=== PATIENT | female | born 1975 | race Caucasian/White ===

== ENCOUNTER 2021-01-13 21:15 | Emergency (ER) | payer MEDICAID, SELFPAY ==
--- NOTE | ~2021-01-13 | CT_ITS ---
EXAMINATION: CT ABDOMEN AND PELVIS WITH CONTRAST CLINICAL INFORMATION: Epigastric pain. History of adhesions. Right upper quadrant pain. COMPARISON: CT scan abdomen pelvis 05/20/2019 TECHNIQUE: Multidetector volumetric images were obtained from the superior aspect of the liver through the pubic symphysis following administration 85 mL of Omnipaque 350 intravenous contrast. Sagittal and coronal reformatted images were obtained on the technologist's workstation. Oral contrast: No This CT examination was performed using dose optimization techniques as appropriate, variously including the following: *Automated exposure control *Adjustment of mA and/or kV according to patient size (this includes techniques or standardized protocols for targeted exams where dose is matched to indication/reason for exam; i.e. extremities or head) *Use of iterative reconstruction technique DLP: 756 mGy-cm FINDINGS: LUNG BASES: The visualized lung bases are unremarkable. LIVER, GALLBLADDER, AND BILIARY TREE: The liver is normal in size, shape, and attenuation. No focal hepatic lesion or biliary ductal dilatation is present. The gallbladder is unremarkable with no evidence of radiopaque gallstones, gallbladder wall thickening, or obvious pericholecystic inflammatory changes. PANCREAS: Unremarkable. SPLEEN: Unremarkable. ADRENAL GLANDS: Unremarkable. KIDNEYS AND URETERS: The kidneys are normal in size, shape, and attenuation. No hydronephrosis, hydroureter, or calculi seen. No perinephric stranding. BLADDER: Unremarkable. GASTROINTESTINAL TRACT: No acute abnormality. There is no bowel wall thickening /edema. There is no bowel obstruction. There is a moderate volume of stool in the colon. The appendix is nonvisualized . The small bowel loops are unremarkable. The stomach is normal. There is no hiatal hernia. ABDOMINAL WALL: No significant hernia is appreciated. LYMPH NODES: Normal. VASCULAR: Small volume of calcifications of distal abdominal aorta and common iliac arteries. There is no aneurysm. PELVIC VISCERA: Status post hysterectomy. No pelvic abnormality. OSSEOUS STRUCTURES: Unremarkable. CT/CT abdomen pelvis w con IMPRESSION: No acute abnormality CT scan abdomen and pelvis.
--- NOTE | ~2021-01-13 | US_ITS ---
EXAMINATION: ABDOMINAL ULTRASOUND LIMITED CLINICAL INFORMATION: Right upper quadrant pain. COMPARISON: Abdominal pelvic CT from 01/13/2021. TECHNIQUE: Real-time imaging of the right upper quadrant abdominal viscera. FINDINGS: PANCREAS: The visualized pancreatic head and body are normal in appearance. The remainder of the pancreas is obscured from visualization by the overlying bowel gas. LIVER: The liver is of normal size and echogenicity without focal lesions nor intrahepatic biliary ductal dilation. GALLBLADDER: Normal. The gallbladder is physiologically distended without evidence of stones, sludge, polyps, wall thickening or pericholecystic fluid. COMMON BILE DUCT: Normal in caliber measuring 0.2 cm in diameter. FREE FLUID: None. US/US abdomen limited IMPRESSION: Unremarkable limited right upper quadrant ultrasound.
[2021-01-13 21:58] VITALS: BP 125/85; PULSE 111; RESP 18; TEMP 36.6; O2SAT 100; BMI 31.6
[2021-01-13 22:11] LABS: MANUAL DIFF FLAG NO
[2021-01-13 22:16] LABS: Basophils Percent Auto 0.3 % (0-2); Eosinophils Absolute Auto 0.1 X10*3/uL (0.0-0.4); Eosinophils Percent Auto 0.4 % (0-4); Hematocrit 44.2 % (37-47); Hemoglobin 14.9 g/dl (12.0-16.0); Imm Gran Abs Auto 0.02 X10*3/uL (0.00-0.03); Imm Gran Pct Auto 0.2 % (0.0-0.4); Lymphocytes Absolute Auto 1.5 X10*3/uL (1.2-4.9); Lymphocytes Percent Auto 12.9 % (20-40); Mean Corpuscular HGB Conc 33.7 g/dl (31.0-35.0); Mean Corpuscular Hemoglobin 31.1 pg (27.0-33.0); Mean Corpuscular Volume 92.3 fL (80-98); Mean Platelet Volume 10.6 fL (9.4-12.3); Monocytes Absolute Auto 0.6 X10*3/uL (0.1-1.2); Monocytes Percent Auto 4.7 % (2-11); Neutrophils Absolute Auto 9.7 X10*3/uL (2.0-8.3); Neutrophils Percent Auto 81.5 % (45-73); Platelet Count 320 X10*3/uL (160-400); Red Blood Count 4.79 X10*6/uL (4.20-5.50); Red Cell Distribution Width 13.2 % (11.0-16.0); White Blood Count 11.9 X10*3/uL (4.8-10.8)
[2021-01-13 22:37] LABS: Alanine Aminotransferase 21 U/L (0-31); Albumin Level 4.7 g/dL (3.5-5.0); Alkaline Phosphatase 86 U/L (39-117); Anion Gap 19 (12-20); Aspartate Amino Transferase 17 U/L (5-31); Bilirubin Total 0.9 mg/dL (0.0-1.0); Blood Urea Nitrogen 15 mg/dL (9-16); Calcium 10.1 mg/dL (8.4-10.2); Carbon Dioxide 25 mmol/L (22-29); Chloride 101 mmol/L (96-108); Creatinine Clr Calc Pharmacy 60.4; Estimated Glomerular Filt Rate 46; Glucose Random 120 mg/dL (60-115); Potassium 3.5 mmol/L (3.3-5.1); Sodium 141 mmol/L (135-145); Total Protein 7.8 g/dL (6.5-8.0)
[2021-01-13] MEDS: ondansetron HCL 4 MG/2 ML VIAL IVPUSH (23:25)
[2021-01-13 23:29] VITALS: RESP 18
[2021-01-13] MEDS: Morphine Sulfate 4 MG/ML CARTRIDGE IVPUSH (23:29)
--- NOTE | 2021-01-13 23:29 | ED.ABDPAIN ---
HPI - Abdominal Pain General Chief Complaint: Abdominal Pain Stated Complaint: nausea vomiting Time Seen by Provider: 01/13/21 23:09 Source: patient Mode of arrival: ambulatory Limitations: no limitations History of Present Illness HPI narrative: Patient comes emergency room complaining of diffuse abdominal pain, much worse in the epigastric and right upper quadrant region. Patient states around 19:00 she was sitting dinner, ate meat, she had sudden onset of severe abdominal pain, nausea, vomiting and diarrhea. Patient states the pain is 10/10. Patient states this is the 1st time that it happens, denies any previous issues with gallbladder. 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 Related Data Previous Rx's Medication Instructions Recorded omeprazole 40 mg PO DAILY #14 cap 01/14/21 Allergies Allergy/AdvReac Type Severity Reaction Status Date / Time No Known Allergies Allergy Unverified 06/14/20 18:36 Review of Systems Review of Systems Constitutional : No Weight loss, No Fever, No Chills, No Night Sweats, No Fatigue, No Malaise ENT/Mouth : No Hearing loss, No Ear Pain, No Nasal Congestion, No Sinus Pain, No Hoarseness, No sore throat, No Rhinorrhea, No Swallowing Difficulty Eyes: No Eye Pain, No Swelling, No Redness, No Foreign Body, No Discharge, No Vision Changes Cardiovascular : No Chest Pain, No SOB, No Dyspnea on Exertion, No Orthopnea, No Edema, No Palpitations Respiratory : No Cough, No Sputum, No Wheezing, No Smoke Exposure, No Dyspnea Gastrointestinal : Complaining of nausea, vomiting, diarrhea, diffuse abdominal pain worse in epigastric and right upper quadrant area Genitourinary : no irregular bleeding, No Dysuria, No Urinary Frequency, No Hematuria, No Urinary Incontinence, No Urgency, No Flank Pain, No Urinary Flow Changes, No Hesitancy Musculoskeletal : No joint pain, No Myalgias, No Joint Swelling Skin : No Skin Lesions, No rash Neuro : No Weakness, No Numbness, No Paresthesias, No Loss of Consciousness, No Dizziness, No Headache Psych : No Anxiety/Panic, No Depression, No SI/HI/AH/VH, No Social Issues, Heme/Lymph: No Bruising, No Bleeding,No Lymphadenopathy Endocrine : No Polyuria, No Polydipsia, No Temperature Intolerance Physical Exam Vital Signs: Vital Signs: Last Vital Signs Temp 97.8 F 01/13/21 21:58 Pulse 85 01/13/21 23:33 Resp 12 01/14/21 00:57 BP 108/68 01/13/21 23:33 Pulse Ox 99 01/13/21 23:33 Body Mass Index 31.6 Appearance: Alert. Oriented X3. Mild distress due to pain, looks uncomfortable Eyes: Pupils equal, round and reactive to light. ENT: Pharynx normal. Neck: Normal inspection. Neck supple. No lymph nodes noted. No crepitus CVS: Normal heart rate and rhythm. Pulses normal. Normal S1 and S2 Respiratory: No respiratory distress. Breath sounds normal. No Wheezing. No rales Abdomen: Soft , tender to palpation diffusely but mostly in the epigastric area, positive Bowen sign, No distention. Skin: Skin warm and dry. Normal skin color. Normal skin turgor. Extremities: No lower extremity edema. No lower extremity edema. No Lacerations. No Rash Neuro: Oriented X 3. No motor deficit. No sensory deficit. Moving all extermities. No slurred speech. Course Course Course Narrative: Patient states that after GI cocktail, she feels much better. I discussed with the patient that given that her symptoms were very sudden, with vomiting and diarrhea, she likely has gastritis, less likely peptic ulcer disease MDM - Abdominal Pain Lab Data Result diagrams: 01/13/21 22:06 01/13/21 22:06 Labs: Lab Results 01/13/21 01/13/21 01/14/21 Range/Units 22:06 22:06 00:53 WBC 11.9 H (4.8-10.8) X10*3/uL RBC 4.79 (4.20-5.50) X10*6/uL Hgb 14.9 (12.0-16.0) g/dl Hct 44.2 (37-47) % MCV 92.3 (80-98) fL MCH 31.1 (27.0-33.0) pg MCHC 33.7 (31.0-35.0) g/dl RDW 13.2 (11.0-16.0) % Plt Count 320 (160-400) X10*3/uL MPV 10.6 (9.4-12.3) fL Immature Gran % (Auto) 0.2 (0.0-0.4) % Neut % (Auto) 81.5 H (45-73) % Lymph % (Auto) 12.9 L (20-40) % [place] % (Auto) 4.7 (2-11) % Eos % (Auto) 0.4 (0-4) % Baso % (Auto) 0.3 (0-2) % Lymph # (Auto) 1.5 (1.2-4.9) X10*3/uL [place] # (Auto) 0.6 (0.1-1.2) X10*3/uL Eos # (Auto) 0.1 (0.0-0.4) X10*3/uL Baso # (Auto) 0.0 (0.0-0.2) X10*3/uL Abs Immat Gran (auto) 0.02 (0.00-0.03) X10*3/uL Absolute Neuts (auto) 9.7 H (2.0-8.3) X10*3/uL Absolute Nucleated RBC 0.000 (0.0-0.012) X10*3/uL Nucleated RBC % (auto) 0.0 (0.0-0.2) /100WBC Sodium 141 (135-145) mmol/L Potassium 3.5 (3.3-5.1) mmol/L Chloride 101 (96-108) mmol/L Carbon Dioxide 25 (22-29) mmol/L Anion Gap 19 (12-20) BUN 15 (9-16) mg/dL Creatinine 1.26 (0.5-1.4) mg/dL Estim Creat Clear Calc 60.4 Estimated GFR 46 Random Glucose 120 H (60-115) mg/dL Calcium 10.1 (8.4-10.2) mg/dL Total Bilirubin 0.9 (0.0-1.0) mg/dL AST 17 (5-31) U/L ALT 21 (0-31) U/L Alkaline Phosphatase 86 (39-117) U/L Total Protein 7.8 (6.5-8.0) g/dL Albumin 4.7 (3.5-5.0) g/dL Urine Color YELLOW Urine Appearance CLEAR Urine pH 7.0 (5.0-8.0) Ur Specific [place] <= 1.005 (1.005-1.025) Urine Protein NEG (NEG-TRACE) MG/DL Urine Glucose (UA) NEG (NEG) MG/DL Urine Ketones NEG (NEG) MG/DL Urine Blood NEG (NEG) Urine Nitrite NEG (NEG) Ur Leukocyte Esterase NEG (NEG) Imaging Data CT scan - abdomen: Radiologist's impression: FINDINGS: LUNG BASES: The visualized lung bases are unremarkable. LIVER, GALLBLADDER, AND BILIARY TREE: The liver is normal in size, shape, and attenuation. No focal hepatic lesion or biliary ductal dilatation is present. The gallbladder is unremarkable with no evidence of radiopaque gallstones, gallbladder wall thickening, or obvious pericholecystic inflammatory changes. PANCREAS: Unremarkable. SPLEEN: Unremarkable. ADRENAL GLANDS: Unremarkable. KIDNEYS AND URETERS: The kidneys are normal in size, shape, and attenuation. No hydronephrosis, hydroureter, or calculi seen. No perinephric stranding. BLADDER: Unremarkable. GASTROINTESTINAL TRACT: No acute abnormality. There is no bowel wall thickening /edema. There is no bowel obstruction. There is a moderate volume of stool in the colon. The appendix is nonvisualized . The small bowel loops are unremarkable. The stomach is normal. There is no hiatal hernia. ABDOMINAL WALL: No significant hernia is appreciated. LYMPH NODES: Normal. VASCULAR: Small volume of calcifications of distal abdominal aorta and common iliac arteries. There is no aneurysm. PELVIC VISCERA: Status post hysterectomy. No pelvic abnormality. OSSEOUS STRUCTURES: Unremarkable. CT/CT abdomen pelvis w con IMPRESSION: No acute abnormality CT scan abdomen and pelvis. Gallbladder ultrasound: Radiologist's impression: FINDINGS: PANCREAS: The visualized pancreatic head and body are normal in appearance. The remainder of the pancreas is obscured from visualization by the overlying bowel gas. LIVER: The liver is of normal size and echogenicity without focal lesions nor intrahepatic biliary ductal dilation. GALLBLADDER: Normal. The gallbladder is physiologically distended without evidence of stones, sludge, polyps, wall thickening or pericholecystic fluid. COMMON BILE DUCT: Normal in caliber measuring 0.2 cm in diameter. FREE FLUID: None. US/US abdomen limited IMPRESSION: Unremarkable limited right upper quadrant ultrasound. Discharge Plan Discharge Clinical Impression: Gastritis Qualifiers: Gastritis type: unspecified gastritis Chronicity: acute Gastritis bleeding: without bleeding Qualified Code(s): K29.00 - Acute gastritis without bleeding Patient Disposition: Home, Self-Care Instructions: Gastritis (ED) Additional Instructions: Please follow-up with your primary care physician tomorrow. If you have any worsening or new symptoms, please return to the emergency room or call 911 Prescriptions: New omeprazole 40 mg capsule,delayed release(DR/EC) 40 mg PO DAILY Qty: 14 RF: 0 PMFSH Past Medical History Medical History delivery delivered HIV (human immunodeficiency virus infection) HLD (hyperlipidemia) Social History Social History Advance Directives: No Advance Directives Information Provided: No
[2021-01-13 23:33] VITALS: BP 108/68; PULSE 85; RESP 15; O2SAT 99
[2021-01-13] MEDS: iohexoL 350 MG/ML 100 ML INFUS..BTL 85 ML IV (23:59)
--- NOTE | 2021-01-14 00:29 | PC.NURSE ---
Pt ambulating to the bathroom to provide urine sample with a steady gait.
--- NOTE | 2021-01-14 00:53 | PC.NURSE ---
UA obtained and sent.
[2021-01-14 00:57] VITALS: RESP 12
[2021-01-14] MEDS: 0.9 % Sodium Chloride 1,000 ML 999 ML IVCONT (01:01)
[2021-01-14 01:02] LABS: Glucose Urine UA NEG (NEG); Leukocyte Esterase Urine NEG (NEG); Nitrite Urine NEG (NEG); Specific Gravity - Urine <= 1.005 (1.005-1.025); Urine Blood NEG (NEG); Urine Ketones NEG (NEG); Urine Protein NEG (NEG-TRACE)
[2021-01-14 01:03] LABS: Appearance Urine CLEAR; Color Urine YELLOW
[2021-01-14] MEDS: Lidocaine HCl Viscous 2 % 15 ML SOLUTION MUCOUS MEM (01:06)
[2021-01-14] MEDS: Magnesium Hydrox/Alum Hydrox 30 ML ORAL.SUSP PO (01:06)
== END 2021-01-14 02:30 | disposition home or self-care (01) ==
PROVIDERS: Emergency Provider Emergency Medicine; PCP Internal Medicine
DX: K29.00 Acute gastritis without bleeding (principal); R10.13 Epigastric pain; R10.2 Pelvic and perineal pain; Z79.899 Other long term (current) drug therapy
CPT/HCPCS: 36415; 74177; 76705; 80053; 81003; 85025; 96361; 96374; 99284; J2270; J2405; Q9967

== ENCOUNTER 2021-02-08 10:06 | Outpatient (REF) | payer MEDICAID, SELFPAY | END 2021-02-08 10:07 | disposition home or self-care (01) | LOC: HO.LAB 10:06 | PROVIDERS: Visit Provider Internal Medicine | DX: Z20.822 Contact with and (suspected) exposure to COVID-19 (principal) | CPT/HCPCS: C9803; U0003; U0005 ==

== ENCOUNTER 2023-03-18 15:42 | Emergency (ER) | payer OTHER, SELFPAY ==
--- NOTE | ~2023-03-18 | XR_ITS ---
EXAMINATION: XR CHEST CLINICAL INFORMATION: Fever COMPARISON: Previous chest x-ray December 2017 TECHNIQUE: Frontal view of the chest was obtained. FINDINGS: No significant abnormality is noted involving the heart, lungs, mediastinum, bony thorax or soft tissues. XR/XR chest 1V IMPRESSION: Unremarkable examination.
--- NOTE | 2023-03-18 16:00 | ED_ITS ---
HPI - General Adult General Chief complaint: General Medical Stated complaint: sore throat, fever, abd pain Time Seen by Provider: 03/18/23 18:20 Source: patient and specimen boss Mode of arrival: ambulatory Limitations: no limitations History of Present Illness HPI narrative: 47-year-old female speaking only presented with headache, sore throat, body ache, epigastric pain started since this morning, patient declining any sick contacts, no recent travel. No chest pain, no SOB, no coughing , no lower extremity swelling or tenderness. Epigastric pain the patient has been evaluated in the emergency department for, patient is scheduled to follow-up with civil division deputy sheriff for further evaluation. Related Data Previous Rx's Medication Instructions Recorded omeprazole 40 mg capsule,delayed 40 mg PO DAILY #14 caps 01/14/21 release amoxicillin 875 mg-potassium 1 tab PO BID #20 tabs 03/18/23 clavulanate 125 mg tablet Allergies Allergy/AdvReac Type Severity Reaction Status Date / Time No Known Allergies Allergy Unverified 06/14/20 18:36 Review of Systems Review of Systems: All other systems are reviewed and are negative Constitutional: Reports as per HPI and Reports no additional constitutional complaints Eyes: Reports as per HPI and Reports no additional eye complaints Reports system reviewed and no additional complaints, except as documented Cardiovascular: Reports as per HPI and Reports no additional cardiovascular complaints Respiratory: Reports as per HPI and Reports no additional respiratory complaints Gastrointestinal: Reports as per HPI and Reports no additional gastrointestinal complaints Genitourinary: Reports no additional female genitourinary complaints Musculoskeletal: Reports no additional musculoskeletal complaints Skin/Breast: Reports system reviewed and no additional complaints, except as docu Psychiatric: Reports no additional psychiatric complaints Endocrine: Reports no additional endocrine complaints Hematologic/Lymphatic: Reports no additional hematologic/lymphatic complaints Allergic/Immunologic: Reports no additional allergic/immunologic complaints Reports system reviewed and no additional complaints, except as documented and Reports Abnormal speech present [facility] Past Medical History Medical History delivery delivered HIV (human immunodeficiency virus infection) HLD (hyperlipidemia) Social History Social History Advance Directives: No Advance Directives Information Provided: Yes Physical Exam ED Vital Signs: Vital Signs - 24 hr 03/18/23 16:01 03/18/23 18:20 03/18/23 19:04 Temperature 100.8 F H 100 F 99.7 F Pulse Rate 91 81 85 Respiratory Rate 20 16 17 Blood Pressure 131/89 125/89 146/72 H Pulse Oximetry 100 98 99 Oxygen Delivery Method Room Air Room Air Room Air BMI result Body Mass Index 30.9 vital signs have been reviewed as appeared to be correct. Blood pressure normal. Heart rate normal. Respiration rate normal. Temperature normal. Oxygen saturation normal. Appearance: Alert. Oriented X3. No acute distress. Head: Normal external exam. Normocephalic. Atraumatic. No Rodriguez signs noted. No raccoon eyes noted Eyes: PERRLA. EOMI. Conjunctiva and sclera normal. Eyelids normal. ENT: TM's Normal. Uvula midline. Moist mucous membranes. No trismus noted. No drooling noted. No muffled voice noted. Left frontal sinus tenderness to percussion , pharyngeal erythema with no exudate. Neck: Normal inspection. Neck supple. FROM. No adenopathy. Thyroid Normal. No meningeal signs. No neck mass noted. CVS: Normal heart rate and rhythm. Heart sound normal. No murmurs noted. Pulses normal throughout. Respiratory: No respiratory distress. Painless inspiration. Breath sounds normal. No wheezes/rales/rhonchi noted. Chest nontender. No accessory muscle usage noted or decreased air movement noted. Abdomen: Soft and nontender. Bowel sounds normal in all 4 quadrants. No distention noted. No organomegaly noted. No visible injury noted. Back: No CVA tenderness. Full range of motion noted. Skin: Skin warm and dry. Normal skin color. Normal skin turgor. No rashes/lesions/lacerations noted. Extremities: No lower extremity edema. Extremities exhibit normal range of motion. Extremities nontender. Neuro: Oriented X 3. Cranial nerve exam: II-XII are grossly intact No motor deficit. No sensory deficit. Reflexes normal. Course Course Course Narrative: RME: 47yo F w/PMHx HIV, HLD, gastritis c/o MAURO, sore throat, chills, epigastric abdominal pain, subj fever x this AM. 100.8 oral in triage, mild posterior or pharyngeal erythema, uvula midline, abdomen soft/nontender EKG, labs, CXR, UA, COVID/flu and rapid strep ordered Full HPI, ROS and PE to be performed by primary ED provider. Reevaluation(s) Reevaluation #1: physical exam is consistent with left frontal sinusitis, patient has unremarkable labs otherwise, patient with history of epigastric pain has been evaluated in the emergency room in the past patient was instructed to follow up with civil division deputy sheriff. Medications Administered Discontinued Medications Generic Name Dose Route Start Last Admin Trade Name Freq PRN Reason Stop Dose Admin Ibuprofen 600 mg 03/18/23 18:42 03/18/23 19:34 Ibuprofen 600 Mg Tablet PO 03/18/23 18:43 600 mg ONCE ONE Administration Medical Decision Making Differential Diagnosis Differential Diagnoses: The differential diagnosis associated with the presentation includes ( ACS, gastritis, viral pharyngitis, bacterial pharyngitis, pneumonia, severe electrolyte abnormalities, severe anemia.) Admission/Observation Consideration of admission/observation: Escalation of care including adm ission/observation considered Lab Data MDM Lab Attestation statement: I reviewed the patient's lab results. 03/18/23 16:23 03/18/23 16:23 Labs: Lab Results 03/18/23 03/18/23 03/18/23 Range/Units 16:23 16:23 16:23 WBC 11.5 H (4.8-10.8) X10*3/uL RBC 4.19 L (4.20-5.50) X10*6/uL Hgb 13.0 (12.0-16.0) g/dl Hct 38.7 (37.0-47.0) % MCV 92.4 (80.0-98.0) fL MCH 31.0 (27.0-33.0) pg MCHC 33.6 (31.0-35.0) g/dl RDW 13.0 (11.0-16.0) % Plt Count 233 (160-400) X10*3/uL MPV 10.2 (9.4-12.3) fL Immature Gran % (Auto) 0.3 (0.0-0.4) % Neut % (Auto) 82.8 H (45-73) % Lymph % (Auto) 9.7 L (20-40) % [place] % (Auto) 6.5 (2-11) % Eos % (Auto) 0.4 (0-4) % Baso % (Auto) 0.3 (0-2) % Lymph # (Auto) 1.1 L (1.2-4.9) X10*3/uL [place] # (Auto) 0.8 (0.1-1.2) X10*3/uL Eos # (Auto) 0.1 (0.0-0.4) X10*3/uL Baso # (Auto) 0.0 (0.0-0.2) X10*3/uL Abs Immat Gran (auto) 0.03 (0.00-0.03) X10*3/uL Absolute Neuts (auto) 9.5 H (2.0-8.3) x10*3/uL Absolute Nucleated RBC 0.000 (0.0-0.012) X10*3/uL Nucleated RBC % (auto) 0.0 (0.0-0.2) /100WBC Sodium 138 (135-145) mmol/L Potassium 3.9 (3.3-5.1) mmol/L Chloride 105 (96-108) mmol/L Carbon Dioxide 25 (22-29) mmol/L Anion Gap 12 (12-20) BUN 15 (9-16) mg/dL Creatinine 1.03 (0.5-1.4) mg/dL Estim Creat Clear Calc 71.6 Estimated GFR 57 Random Glucose 84 (60-115) mg/dL Calcium 9.8 (8.4-10.2) mg/dL Total Bilirubin 0.9 (0.0-1.0) mg/dL Direct Bilirubin 0.3 (0.0-0.5) mg/dL AST 19 (5-31) U/L ALT 19 (0-31) U/L Alkaline Phosphatase 72 (39-117) U/L Troponin I High Sens < 2.7 (<3.5-17.0) ng/L Total Protein 7.1 (6.5-8.0) g/dL Albumin 4.2 (3.5-5.0) g/dL Lipase 14 (8-78) U/L Urine Color Urine Appearance Urine pH (5.0-9.0) Ur Specific [place] (1.005-1.025) Urine Protein (Neg-Trace) mg/dL Urine Glucose (UA) (Negative) mg/dL Urine Ketones (Negative) mg/dL Urine Blood (Negative) Urine Nitrite (Negative) Ur Leukocyte Esterase (Negative) Urine RBC (0-2) /HPF Urine WBC (0-5) /HPF Ur Squamous Epith Cells (0-2) /HPF Urine Bacteria (None Seen) Hyaline Casts (0-2) /LPF COVID-19 (ERIN) (Negative) COVID-19 Clin Com Influenza Type A (MALCOM) (Negative) Influenza Type B ([facility]ALCOM) (Negative) Influenza A & B Note S. pyogenes GrpA MALCOM (Negative) 03/18/23 03/18/23 03/18/23 Range/Units 16:23 16:23 18:30 WBC (4.8-10.8) X10*3/uL RBC (4.20-5.50) X10*6/uL Hgb (12.0-16.0) g/dl Hct (37.0-47.0) % MCV (80.0-98.0) fL MCH (27.0-33.0) pg MCHC (31.0-35.0) g/dl RDW (11.0-16.0) % Plt Count (160-400) X10*3/uL MPV (9.4-12.3) fL Immature Gran % (Auto) (0.0-0.4) % Neut % (Auto) (45-73) % Lymph % (Auto) (20-40) % [place] % (Auto) (2-11) % Eos % (Auto) (0-4) % Baso % (Auto) (0-2) % Lymph # (Auto) (1.2-4.9) X10*3/uL [place] # (Auto) (0.1-1.2) X10*3/uL Eos # (Auto) (0.0-0.4) X10*3/uL Baso # (Auto) (0.0-0.2) X10*3/uL Abs Immat Gran (auto) (0.00-0.03) X10*3/uL Absolute Neuts (auto) (2.0-8.3) x10*3/uL Absolute Nucleated RBC (0.0-0.012) X10*3/uL Nucleated RBC % (auto) (0.0-0.2) /100WBC Sodium (135-145) mmol/L Potassium (3.3-5.1) mmol/L Chloride (96-108) mmol/L Carbon Dioxide (22-29) mmol/L Anion Gap (12-20) BUN (9-16) mg/dL Creatinine (0.5-1.4) mg/dL Estim Creat Clear Calc Estimated GFR Random Glucose (60-115) mg/dL Calcium (8.4-10.2) mg/dL Total Bilirubin (0.0-1.0) mg/dL Direct Bilirubin (0.0-0.5) mg/dL AST (5-31) U/L ALT (0-31) U/L Alkaline Phosphatase (39-117) U/L Troponin I High Sens (<3.5-17.0) ng/L Total Protein (6.5-8.0) g/dL Albumin (3.5-5.0) g/dL Lipase (8-78) U/L Urine Color Urine Appearance Urine pH (5.0-9.0) Ur Specific [place] (1.005-1.025) Urine Protein (Neg-Trace) mg/dL Urine Glucose (UA) (Negative) mg/dL Urine Ketones (Negative) mg/dL Urine Blood (Negative) Urine Nitrite (Negative) Ur Leukocyte Esterase (Negative) Urine RBC (0-2) /HPF Urine WBC (0-5) /HPF Ur Squamous Epith Cells (0-2) /HPF Urine Bacteria (None Seen) Hyaline Casts (0-2) /LPF COVID-19 (ERIN) Negative (Negative) COVID-19 Clin Com See Note Influenza Type A (MALCOM) Negative (Negative) Influenza Type B ([facility]ALCOM) Negative (Negative) Influenza A & B Note See Note S. pyogenes GrpA MALCOM Negative (Negative) 03/18/23 Range/Units 19:03 WBC (4.8-10.8) X10*3/uL RBC (4.20-5.50) X10*6/uL Hgb (12.0-16.0) g/dl Hct (37.0-47.0) % MCV (80.0-98.0) fL MCH (27.0-33.0) pg MCHC (31.0-35.0) g/dl RDW (11.0-16.0) % Plt Count (160-400) X10*3/uL MPV (9.4-12.3) fL Immature Gran % (Auto) (0.0-0.4) % Neut % (Auto) (45-73) % Lymph % (Auto) (20-40) % [place] % (Auto) (2-11) % Eos % (Auto) (0-4) % Baso % (Auto) (0-2) % Lymph # (Auto) (1.2-4.9) X10*3/uL [place] # (Auto) (0.1-1.2) X10*3/uL Eos # (Auto) (0.0-0.4) X10*3/uL Baso # (Auto) (0.0-0.2) X10*3/uL Abs Immat Gran (auto) (0.00-0.03) X10*3/uL Absolute Neuts (auto) (2.0-8.3) x10*3/uL Absolute Nucleated RBC (0.0-0.012) X10*3/uL Nucleated RBC % (auto) (0.0-0.2) /100WBC Sodium (135-145) mmol/L Potassium (3.3-5.1) mmol/L Chloride (96-108) mmol/L Carbon Dioxide (22-29) mmol/L Anion Gap (12-20) BUN (9-16) mg/dL Creatinine (0.5-1.4) mg/dL Estim Creat Clear Calc Estimated GFR Random Glucose (60-115) mg/dL Calcium (8.4-10.2) mg/dL Total Bilirubin (0.0-1.0) mg/dL Direct Bilirubin (0.0-0.5) mg/dL AST (5-31) U/L ALT (0-31) U/L Alkaline Phosphatase (39-117) U/L Troponin I High Sens (<3.5-17.0) ng/L Total Protein (6.5-8.0) g/dL Albumin (3.5-5.0) g/dL Lipase (8-78) U/L Urine Color Yellow Urine Appearance Clear Urine pH 5.5 (5.0-9.0) Ur Specific [place] 1.020 (1.005-1.025) Urine Protein Negative (Neg-Trace) mg/dL Urine Glucose (UA) Negative (Negative) mg/dL Urine Ketones Trace (Negative) mg/dL Urine Blood Negative (Negative) Urine Nitrite Negative (Negative) Ur Leukocyte Esterase Small (1+) H (Negative) Urine RBC 0-2 (0-2) /HPF Urine WBC 0-5 (0-5) /HPF Ur Squamous Epith Cells 3-5 (0-2) /HPF Urine Bacteria None Seen (None Seen) Hyaline Casts 0-2 (0-2) /LPF COVID-19 (ERIN) (Negative) COVID-19 Clin Com Influenza Type A (MALCOM) (Negative) Influenza Type B (MALCMO) (Negative) Influenza A & B Note S. pyogenes GrpA MALCOM (Negative) Independent Interpretation I performed an independent interpretation of an: Plain X-Ray ( Chest: No acute intrathoracic pathology.) Radiology Impression Discussion of test interpretation with radiology: I have reviewed the radiologist's reading. Chronic Conditions Patient?s care impacted by: Other ( HIV.) Discharge Plan Discharge Clinical Impression: Acute frontal sinusitis Patient Disposition: Home, Self-Care Instructions: Sinusitis (ED) Prescriptions: New amoxicillin-pot clavulanate 875-125 mg tablet 1 tab PO BID Qty: 20 0RF No Action omeprazole 40 mg capsule,delayed release(DR/EC) 40 mg PO DAILY Qty: 14 0RF Referrals: Mohan Webster MD [Primary Care Provider] -
[2023-03-18 16:01] VITALS: BP 131/89; PULSE 91; RESP 20; TEMP 38.2; O2SAT 100; BMI 30.9
--- NOTE | 2023-03-18 16:03 | ECG_ITS ---
Test Reason : ABDPAIN Blood Pressure : / mmHG Vent. Rate : 083 BPM Atrial Rate : 083 BPM P-R Int : 146 ms QRS Dur : 078 ms QT Int : 374 ms P-R-T Axes : 033 003 024 degrees QTc Int : 439 ms Normal sinus rhythm Minimal voltage criteria for LVH, may be normal variant ( R in aVL ) Borderline ECG When compared with ECG of 25-JAN-2018 13:31, No significant change was found Referred By: Emma Steel Electronically Signed By:LYSSA BERRY
[2023-03-18 16:29] LABS: MANUAL DIFF FLAG NO
[2023-03-18 16:31] LABS: Basophils Percent Auto 0.3 % (0-2); Eosinophils Absolute Auto 0.1 X10*3/uL (0.0-0.4); Eosinophils Percent Auto 0.4 % (0-4); Hematocrit 38.7 % (37.0-47.0); Imm Gran Abs Auto 0.03 X10*3/uL (0.00-0.03); Imm Gran Pct Auto 0.3 % (0.0-0.4); Lymphocytes Absolute Auto 1.1 X10*3/uL (1.2-4.9); Lymphocytes Percent Auto 9.7 % (20-40); Mean Corpuscular HGB Conc 33.6 g/dl (31.0-35.0); Mean Corpuscular Volume 92.4 fL (80.0-98.0); Mean Platelet Volume 10.2 fL (9.4-12.3); Monocytes Absolute Auto 0.8 X10*3/uL (0.1-1.2); Monocytes Percent Auto 6.5 % (2-11); Neutrophils Absolute Auto 9.5 x10*3/uL (2.0-8.3); Neutrophils Percent Auto 82.8 % (45-73); Platelet Count 233 X10*3/uL (160-400); Red Blood Count 4.19 X10*6/uL (4.20-5.50); White Blood Count 11.5 X10*3/uL (4.8-10.8)
[2023-03-18 16:45] LABS: Alanine Aminotransferase 19 U/L (0-31); Albumin Level 4.2 g/dL (3.5-5.0); Alkaline Phosphatase 72 U/L (39-117); Anion Gap 12 (12-20); Aspartate Amino Transferase 19 U/L (5-31); Bilirubin Direct 0.3 mg/dL (0.0-0.5); Bilirubin Total 0.9 mg/dL (0.0-1.0); Blood Urea Nitrogen 15 mg/dL (9-16); Calcium 9.8 mg/dL (8.4-10.2); Carbon Dioxide 25 mmol/L (22-29); Chloride 105 mmol/L (96-108); Creatinine Clr Calc Pharmacy 71.6; Estimated Glomerular Filt Rate 57; Glucose Random 84 mg/dL (60-115); Lipase 14 U/L (8-78); Potassium 3.9 mmol/L (3.3-5.1); Sodium 138 mmol/L (135-145); Total Protein 7.1 g/dL (6.5-8.0)
[2023-03-18 16:53] LABS: Troponin-I High Sensitivity < 2.7 ng/L (<3.5-17.0)
[2023-03-18 16:55] LABS: COVID-19 Test Negative (Negative); IDNOW Serial# BCCEAD1C
[2023-03-18 17:12] LABS: IDNOW Serial# 9DB6401D; Influenza A Negative (Negative); Influenza B2 Negative (Negative)
[2023-03-18 18:20] VITALS: BP 125/89; PULSE 81; RESP 16; TEMP 37.7; O2SAT 98
[2023-03-18 18:55] LABS: IDNOW Serial# 08D9AD1C; Strep A Nucleic Acid Negative (Negative)
[2023-03-18 19:04] VITALS: BP 146/72; PULSE 85; RESP 17; TEMP 37.6; O2SAT 99
[2023-03-18 19:11] LABS: Appearance Urine Clear; Color Urine Yellow; Glucose Urine UA Negative (Negative); Leukocyte Esterase Urine Small (1+) (Negative); Nitrite Urine Negative (Negative); PH 5.5 (5.0-9.0); UMIC TRIGGER UACC YES; Urine Blood Negative (Negative); Urine Ketones Trace mg/dL (Negative); Urine Protein Negative (Neg-Trace)
--- NOTE | 2023-03-18 19:15 | MHC.EDTECH ---
ED ROUNDS ARE DONE VITALS ARE DONE
[2023-03-18] MEDS: Ibuprofen 600 MG TABLET PO (19:34)
--- NOTE | 2023-03-18 19:35 | PC.NURSE ---
pt medicated per MAR.
[2023-03-18 19:53] LABS: Bacteria Urine None Seen (None Seen); Hyaline Casts Urine 0-2 /LPF (0-2); RBC Urine 0-2 /HPF (0-2); UACC Culture Trigger YES; WBC Urine 0-5 /HPF (0-5)
[2023-03-18 20:25] VITALS: PULSE 89; RESP 16; TEMP 38; O2SAT 99
[2023-03-18] MEDS: oxyCODONE HCl Immed Release 5 MG TABLET PO (20:32)
[2023-03-18] MEDS: Amoxicillin/Potassium Clav 875 MG TABLET PO (20:32)
--- NOTE | 2023-03-18 20:39 | PC.NURSE ---
pt medicated w oxy and ABX prior to departure per orders. family member driving pt home. no piv. customer support specialist used this shift. aox4.
== END 2023-03-18 20:41 | disposition home or self-care (01) ==
PROVIDERS: Physician Assistant; Emergency Provider Emergency Medicine; PCP Internal Medicine
DX: J01.10 Acute frontal sinusitis, unspecified (principal); Z20.822 Contact with and (suspected) exposure to COVID-19; R50.9 Fever, unspecified; B20 Human immunodeficiency virus [HIV] disease; E78.5 Hyperlipidemia, unspecified; Z79.899 Other long term (current) drug therapy
CPT/HCPCS: 71045; 80048; 80076; 81001; 83690; 84484; 85025; 87086; 87502; 87635; 87651; 93005; 99283; 99284

== ENCOUNTER 2023-03-19 19:24 | Emergency (ER) | payer OTHER, SELFPAY ==
--- NOTE | 2023-03-19 | ECG_ITS ---
Test Reason : CP Blood Pressure : / mmHG Vent. Rate : 082 BPM Atrial Rate : 082 BPM P-R Int : 152 ms QRS Dur : 084 ms QT Int : 378 ms P-R-T Axes : 026 005 024 degrees QTc Int : 441 ms Normal sinus rhythm Minimal voltage criteria for LVH, may be normal variant ( R in aVL ) Borderline ECG When compared with ECG of 18-MAR-2023 16:13, No significant change was found Referred By: Generic ED Physician Electronically Signed By:YLSSA BERRY
[2023-03-19 19:29] VITALS: BP 118/72; PULSE 91; O2SAT 97
[2023-03-19 19:31] VITALS: BP 119/70; PULSE 92; RESP 26; TEMP 37.9; O2SAT 97
--- NOTE | 2023-03-19 19:51 | PC.NURSE ---
Pt ca&ox3, no signs of distress. Pt reports 10/10 throat, head and body pain. 20G IV placed in Rt AC. EKG done. Pt placed on bedside monitor.
--- NOTE | 2023-03-19 19:59 | ED.FEVER ---
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 states she takes no motrin or tylenol for her fevers. Cannot figure out why she still has a fevers. She denies risk for STI. 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 She overall is not feeling better. MD elicited complaint: fever Pertinent past history: HIV Onset (ago): day(s) (2) Context: sick contacts Exacerbating factors: swallowing Relieving factors: nothing Associated symptoms: chills, headache, rhinorrhea and sore throat Treatments prior to arrival fever: none Related Data Previous Rx's Medication Instructions Recorded omeprazole 40 mg capsule,delayed 40 mg PO DAILY #14 caps 01/14/21 release amoxicillin 875 mg-potassium 1 tab PO BID #20 tabs 03/18/23 clavulanate 125 mg tablet acetaminophen 325 mg tablet 650 mg PO Q6H PRN fever or pain 03/19/23 (Tylenol) #30 tabs ibuprofen 600 mg tablet 600 mg PO Q8H PRN fever or pain 03/19/23 #30 tabs Allergies Allergy/AdvReac Type Severity Reaction Status Date / Time No Known Allergies Allergy Unverified 06/14/20 18:36 Review of Systems Review of Systems: Constitutional : pos Fever, No Chills, No Fatigue ENT/Mouth : pos sore throat, pos Rhinorrhea Eyes: No Eye Pain, No Swelling, No Redness Cardiovascular : No Chest Pain, No SOB, No Dyspnea on Exertion Respiratory : No Cough, No Sputum Gastrointestinal : No Nausea, No Vomiting, No Diarrhea, No abdominal Pain Genitourinary : No Dysuria, No Urinary Frequency, No Hematuria, Musculoskeletal : No joint pain, No Myalgias, No Joint Swelling Skin : No Skin Lesions, No rash Neuro : No Weakness, No Numbness, No Dizziness, positive Headache Psych : No Anxiety/Panic, No Depression All other systems reviewed and are negative [facility] Past Medical History Attestation statement: The following information was validated with the patient. Medical History delivery delivered HIV (human immunodeficiency virus infection) HLD (hyperlipidemia) Social History Social History Alcohol intake: never Smoked in Last 30 Days: No Advance Directives: No Advance Directives Information Provided: No Patient : No Physical Exam Vital Signs: Vital Signs: Last Vital Signs Temp 100.2 F 03/19/23 19:31 Pulse 92 03/19/23 19:31 Resp 26 H 03/19/23 19:31 BP 119/70 03/19/23 19:31 Pulse Ox 97 03/19/23 19:31 O2 Del Method Room Air 03/19/23 19:31 BMI result Body Mass Index 30.0 Appearance: Alert. Oriented X3. No acute distress. Eyes: Pupils equal, round and reactive to light. ENT: Pharynx bilateral exudates noted, uvula midline no VENEREAL DISEASE CONTROL HEAD, normal voice handling secretions, no submandibular swelling or fullness Neck: Normal inspection. Neck supple. CVS: Normal heart rate and rhythm. Pulses normal. Respiratory: No respiratory distress. Breath sounds normal. Abdomen: Soft and nontender. Skin: Skin warm and dry. Normal skin color. Normal skin turgor. Extremities: No lower extremity edema. Neuro: Oriented X 3. No motor deficit. No sensory deficit. Course Course Course Narrative: feels better stable for DC Medications Administered Generic Name Dose Route Start Last Admin Trade Name Freq PRN Reason Stop Dose Admin Sodium Chloride 1,000 mls @ 999 mls/hr 03/19/23 20:15 03/19/23 20:06 Ns IV 03/19/23 21:15 999 mls/hr .Q1H1M GERALDO Administration Discontinued Medications Generic Name Dose Route Start Last Admin Trade Name Freq PRN Reason Stop Dose Admin Acetaminophen 650 mg 03/19/23 19:49 03/19/23 20:14 Acetaminophen 325 Mg Tablet PO 03/19/23 19:50 650 mg ONCE ONE Administration Ceftriaxone Sodium 1 gm/ 50 mls @ 100 mls/hr 03/19/23 19:59 03/19/23 20:14 Sodium Chloride IV 03/19/23 20:28 100 mls/hr ONCE ONE Administration Ketorolac Tromethamine 15 mg 03/19/23 19:59 03/19/23 20:14 Ketorolac Tromethamine 15 Mg/Ml Vial IVPUSH 03/19/23 20:00 15 mg ONCE ONE Administration Medical Decision Making Medical Decision Making [facility] Narrative: 47 yo female with hx of HIV, GERD here with fevers and sore throat - has only taken 2 doses of augmentin but not taking motrin or tylenol and upset she has a fever, she has no signs of VENEREAL DISEASE CONTROL HEAD or deeper space infection, normal voice tolerating secretions. She is not toxic appearing. we discussed tylenol and motrin for fevers she is aware. I offered STI testing she refuses, will repeat labs, check mono, one dose of rocephin and IVF tylenol and motrin anticipate DC home Differential Diagnosis Differential Diagnoses: The differential diagnosis associated with the presentation includes mono, strep throat, sinusitis, viral syndrome - adamantly denies STI concerns and declines swab Lab Data [facility] Lab Attestation statement: I reviewed the patient's lab results. 03/19/23 19:58 03/19/23 19:58 Labs: Lab Results 03/19/23 03/19/23 03/19/23 Range/Units 19:58 19:58 19:58 WBC 14.6 H (4.8-10.8) X10*3/uL RBC 4.07 L (4.20-5.50) X10*6/uL Hgb 12.6 (12.0-16.0) g/dl Hct 37.2 (37.0-47.0) % MCV 91.4 (80.0-98.0) fL MCH 31.0 (27.0-33.0) pg MCHC 33.9 (31.0-35.0) g/dl RDW 13.2 (11.0-16.0) % Plt Count 200 (160-400) X10*3/uL MPV 10.1 (9.4-12.3) fL Immature Gran % (Auto) 0.7 H (0.0-0.4) % Neut % (Auto) 82.3 H (45-73) % Lymph % (Auto) 9.3 L (20-40) % [place] % (Auto) 7.5 (2-11) % Eos % (Auto) 0.0 (0-4) % Baso % (Auto) 0.2 (0-2) % Lymph # (Auto) 1.4 (1.2-4.9) X10*3/uL [place] # (Auto) 1.1 (0.1-1.2) X10*3/uL Eos # (Auto) 0.0 (0.0-0.4) X10*3/uL Baso # (Auto) 0.0 (0.0-0.2) X10*3/uL Abs Immat Gran (auto) 0.10 H (0.00-0.03) X10*3/uL Absolute Neuts (auto) 12.0 H (2.0-8.3) x10*3/uL Absolute Nucleated RBC 0.000 (0.0-0.012) X10*3/uL Nucleated RBC % (auto) 0.0 (0.0-0.2) /100WBC Sodium 135 (135-145) mmol/L Potassium 3.2 L (3.3-5.1) mmol/L Chloride 102 (96-108) mmol/L Carbon Dioxide 22 (22-29) mmol/L Anion Gap 14 (12-20) BUN 9 (9-16) mg/dL Creatinine 0.90 (0.5-1.4) mg/dL Estim Creat Clear Calc 80.7 Estimated GFR > 60 Random Glucose 119 H (60-115) mg/dL Lactic Acid 0.8 (0.5-2.0) mmol/L Calcium 9.4 (8.4-10.2) mg/dL Total Bilirubin 0.9 (0.0-1.0) mg/dL Direct Bilirubin 0.3 (0.0-0.5) mg/dL AST 13 (5-31) U/L ALT 12 (0-31) U/L Alkaline Phosphatase 65 (39-117) U/L Total Protein 6.9 (6.5-8.0) g/dL Albumin 3.9 (3.5-5.0) g/dL Monoscreen (Negative) 03/19/23 Range/Units 20:05 WBC (4.8-10.8) X10*3/uL RBC (4.20-5.50) X10*6/uL Hgb (12.0-16.0) g/dl Hct (37.0-47.0) % MCV (80.0-98.0) fL MCH (27.0-33.0) pg MCHC (31.0-35.0) g/dl RDW (11.0-16.0) % Plt Count (160-400) X10*3/uL MPV (9.4-12.3) fL Immature Gran % (Auto) (0.0-0.4) % Neut % (Auto) (45-73) % Lymph % (Auto) (20-40) % [place] % (Auto) (2-11) % Eos % (Auto) (0-4) % Baso % (Auto) (0-2) % Lymph # (Auto) (1.2-4.9) X10*3/uL [place] # (Auto) (0.1-1.2) X10*3/uL Eos # (Auto) (0.0-0.4) X10*3/uL Baso # (Auto) (0.0-0.2) X10*3/uL Abs Immat Gran (auto) (0.00-0.03) X10*3/uL Absolute Neuts (auto) (2.0-8.3) x10*3/uL Absolute Nucleated RBC (0.0-0.012) X10*3/uL Nucleated RBC % (auto) (0.0-0.2) /100WBC Sodium (135-145) mmol/L Potassium (3.3-5.1) mmol/L Chloride (96-108) mmol/L Carbon Dioxide (22-29) mmol/L Anion Gap (12-20) BUN (9-16) mg/dL Creatinine (0.5-1.4) mg/dL Estim Creat Clear Calc Estimated GFR Random Glucose (60-115) mg/dL Lactic Acid (0.5-2.0) mmol/L Calcium (8.4-10.2) mg/dL Total Bilirubin (0.0-1.0) mg/dL Direct Bilirubin (0.0-0.5) mg/dL AST (5-31) U/L ALT (0-31) U/L Alkaline Phosphatase (39-117) U/L Total Protein (6.5-8.0) g/dL Albumin (3.5-5.0) g/dL Monoscreen Negative (Negative) Independent Interpretation I performed an independent interpretation of an: EKG Interpretation: Rate: 82 Rhythm: NSR [place]: left, LVH Normal P waves. Normal SHERICE. Normal QRS complex. ST T wave : no YAMILET no ST depression qTC: normal prior studies: no acute ischemia The study has been interpreted contemporaneously by me. . External Record Review External record reviewed: Inpatient record ED records and labs from yesterday Prescription Management I considered prescription management with: Antibiotic Social Determinants Patient?s care significantly limited by Social Determinants of Health including: Problems related to primary support group Discharge Plan Discharge Clinical Impression: Acute febrile illness Pharyngitis Qualifiers: Pharyngitis/tonsillitis etiology: unspecified etiology Qualified Code(s): J02.9 - Acute pharyngitis, unspecified Patient Disposition: Home, Self-Care Instructions: Pharyngitis (ED), Fever in Adults (ED) Additional Instructions: regrese por empeoramiento de la fiebre, aumento del dolor, incapacidad para comer o beber, empeoramiento del dolor de garganta, siente que no est? mejor despu?s de 48 horas o cualquier otra inquietud. Prescriptions: New ibuprofen 600 mg tablet 600 mg PO Q8H PRN (Reason: fever or pain) Qty: 30 0RF acetaminophen [Tylenol] 325 mg tablet 650 mg PO Q6H PRN (Reason: fever or pain) Qty: 30 0RF No Action omeprazole 40 mg capsule,delayed release(DR/EC) 40 mg PO DAILY Qty: 14 0RF amoxicillin-pot clavulanate 875-125 mg tablet 1 tab PO BID Qty: 20 0RF Print Language: Bermudian
[2023-03-19 20:04] LABS: MANUAL DIFF FLAG NO
[2023-03-19 20:05] LABS: Basophils Percent Auto 0.2 % (0-2); Hematocrit 37.2 % (37.0-47.0); Hemoglobin 12.6 g/dl (12.0-16.0); Imm Gran Pct Auto 0.7 % (0.0-0.4); Lymphocytes Absolute Auto 1.4 X10*3/uL (1.2-4.9); Lymphocytes Percent Auto 9.3 % (20-40); Mean Corpuscular HGB Conc 33.9 g/dl (31.0-35.0); Mean Corpuscular Volume 91.4 fL (80.0-98.0); Mean Platelet Volume 10.1 fL (9.4-12.3); Monocytes Absolute Auto 1.1 X10*3/uL (0.1-1.2); Monocytes Percent Auto 7.5 % (2-11); Neutrophils Percent Auto 82.3 % (45-73); Platelet Count 200 X10*3/uL (160-400); Red Blood Count 4.07 X10*6/uL (4.20-5.50); Red Cell Distribution Width 13.2 % (11.0-16.0); White Blood Count 14.6 X10*3/uL (4.8-10.8)
[2023-03-19] MEDS: 0.9 % Sodium Chloride 1,000 ML 999 ML IV (20:06)
[2023-03-19] MEDS: cefTRIAXone sodium 1 GM in 0.9 % Sodium Chloride 50 ML IV (20:14)
[2023-03-19] MEDS: Ketorolac Tromethamine 15 MG/ML VIAL IVPUSH (20:14)
[2023-03-19] MEDS: Acetaminophen 325 MG TABLET 650 MG PO (20:14)
--- NOTE | 2023-03-19 20:24 | PC.NURSE ---
Pt ca&ox3, no signs of distress. Pt started on abx, and given meds per mar. Family at bedside. wctm.
[2023-03-19 20:27] LABS: Lactic Acid 0.8 mmol/L (0.5-2.0)
[2023-03-19 20:32] LABS: Alanine Aminotransferase 12 U/L (0-31); Albumin Level 3.9 g/dL (3.5-5.0); Alkaline Phosphatase 65 U/L (39-117); Anion Gap 14 (12-20); Aspartate Amino Transferase 13 U/L (5-31); Bilirubin Direct 0.3 mg/dL (0.0-0.5); Bilirubin Total 0.9 mg/dL (0.0-1.0); Blood Urea Nitrogen 9 mg/dL (9-16); Calcium 9.4 mg/dL (8.4-10.2); Carbon Dioxide 22 mmol/L (22-29); Chloride 102 mmol/L (96-108); Creatinine Clr Calc Pharmacy 80.7; Estimated Glomerular Filt Rate > 60; Glucose Random 119 mg/dL (60-115); Potassium 3.2 mmol/L (3.3-5.1); Sodium 135 mmol/L (135-145); Total Protein 6.9 g/dL (6.5-8.0)
[2023-03-19 20:38] LABS: Monotest Negative (Negative)
[2023-03-19 21:10] VITALS: PULSE 75; RESP 12
[2023-03-19] MEDS: Potassium Chloride Packet 20 MEQ PACKET 40 MEQ PO (21:12)
[2023-03-19 21:24] VITALS: RESP 14
== END 2023-03-19 21:42 | disposition home or self-care (01) ==
PROVIDERS: Emergency Provider Emergency Medicine; PCP Internal Medicine
DX: J02.9 Acute pharyngitis, unspecified (principal); R50.9 Fever, unspecified; B20 Human immunodeficiency virus [HIV] disease
CPT/HCPCS: 36415; 80048; 80076; 83605; 85025; 86308; 87040; 93005; 96361; 96374; 96375; 99284; 99285; J0696; J1885

== ENCOUNTER 2023-06-01 17:37 | Emergency (ER) | payer OTHER, SELFPAY ==
[2023-06-01 17:50] VITALS: BP 163/86; PULSE 88; RESP 18; TEMP 36.4; O2SAT 98; BMI 29.1
[2023-06-01 18:18] LABS: MANUAL DIFF FLAG NO
[2023-06-01 18:19] LABS: Basophils Percent Auto 0.6 % (0-2); Eosinophils Absolute Auto 0.1 X10*3/uL (0.0-0.4); Eosinophils Percent Auto 2.6 % (0-4); Hematocrit 37.9 % (37.0-47.0); Hemoglobin 12.7 g/dl (12.0-16.0); Imm Gran Abs Auto 0.01 X10*3/uL (0.00-0.03); Imm Gran Pct Auto 0.2 % (0.0-0.4); Lymphocytes Absolute Auto 2.1 X10*3/uL (1.2-4.9); Lymphocytes Percent Auto 38.2 % (20-40); Mean Corpuscular HGB Conc 33.5 g/dl (31.0-35.0); Mean Corpuscular Hemoglobin 30.7 pg (27.0-33.0); Mean Corpuscular Volume 91.5 fL (80.0-98.0); Monocytes Absolute Auto 0.5 X10*3/uL (0.1-1.2); Monocytes Percent Auto 8.9 % (2-11); Neutrophils Absolute Auto 2.7 x10*3/uL (2.0-8.3); Neutrophils Percent Auto 49.5 % (45-73); Platelet Count 241 X10*3/uL (160-400); Red Blood Count 4.14 X10*6/uL (4.20-5.50); Red Cell Distribution Width 13.1 % (11.0-16.0); White Blood Count 5.4 X10*3/uL (4.8-10.8)
[2023-06-01 18:32] LABS: Alanine Aminotransferase 17 U/L (0-31); Albumin Level 4.1 g/dL (3.5-5.0); Alkaline Phosphatase 63 U/L (39-117); Anion Gap 13 (12-20); Aspartate Amino Transferase 18 U/L (5-31); Bilirubin Total 0.6 mg/dL (0.0-1.0); Blood Urea Nitrogen 15 mg/dL (9-16); Carbon Dioxide 25 mmol/L (22-29); Chloride 106 mmol/L (96-108); Creatinine Clr Calc Pharmacy 68.9; Estimated Glomerular Filt Rate 57; Glucose Random 113 mg/dL (60-115); Potassium 3.6 mmol/L (3.3-5.1); Sodium 140 mmol/L (135-145); Total Protein 6.8 g/dL (6.5-8.0)
[2023-06-01 20:57] VITALS: BP 137/85; PULSE 72; RESP 17; TEMP 37.1; O2SAT 99
--- NOTE | 2023-06-01 20:59 | MHC.EDTECH ---
Pt is resting in bed Respirations and even and unlabored Plan of care is ongoing
--- NOTE | 2023-06-01 23:17 | ED_ITS ---
HPI - Skin/Abscess/Foreign Bdy General Chief complaint: Skin/Abscess/Foreign Body Stated complaint: Absess Right leg near private area Time Seen by Provider: 06/01/23 20:55 Source: patient, family and nurse esthetician Mode of arrival: ambulatory History of Present Illness HPI narrative: 47-year-old female who presents with hardened/painful area to right proximal medial thigh and states he is had a drain before and demands that it be drained now despite informing patient that it is only indurated. Related Data Previous Rx's Medication Instructions Recorded omeprazole 40 mg capsule,delayed 40 mg PO DAILY #14 caps 01/14/21 release amoxicillin 875 mg-potassium 1 tab PO BID #20 tabs 03/18/23 clavulanate 125 mg tablet acetaminophen 325 mg tablet 650 mg PO Q6H PRN fever or pain 03/19/23 (Tylenol) #30 tabs ibuprofen 600 mg tablet 600 mg PO Q8H PRN fever or pain 03/19/23 #30 tabs Allergies Allergy/AdvReac Type Severity Reaction Status Date / Time No Known Allergies Allergy Verified 06/01/23 19:40 Review of Systems Review of Systems: Pertinent positives and negatives as stated in HPI PMFSH Past Medical History Source: nursing notes reviewed Medical History delivery delivered HIV (human immunodeficiency virus infection) HLD (hyperlipidemia) Social History Social History Alcohol intake: never Advance Directives: No Advance Directives Information Provided: Yes Physical Exam Vital Signs: Vital Signs: Last Vital Signs Temp 98.7 F 06/01/23 20:57 Pulse 72 06/01/23 20:57 Resp 17 06/01/23 20:57 BP 137/85 06/01/23 20:57 Pulse Ox 99 06/01/23 20:57 O2 Del Method Room Air 06/01/23 20:57 BMI result Body Mass Index 29.1 VITAL SIGNS: Reviewed. GENERAL: Well developed, well nourished, in no acute distress. HEAD: Normocephalic/atraumatic EYES: PERRLA, EOMI LUNGS: Normal breath sounds. No adventitious sounds or accessory muscle use. SpO2<99> CARDIOVASCULAR: Regular rate and rhythm without noted murmurs ABDOMEN: Soft, non-tender, non-distended with bowel sounds. RLE: Proximal swelling, approx 1.5cm without erythema and no fluctuance. SKIN: Inspection of the skin reveals no rashes NEUROLOGIC: Alert and oriented x 4. Strength and sensation to light touch were grossly intact x 4. Medical Decision Making Medical Decision Making [facility] Narrative: 47-year-old female with history and clinical presentation of what she suspects i s a small abscess, I do not appreciate any fluctuance however patient demands that I cut it . I reviewed all investigations and hematologic indices are negative for leukocytosis/left shift, there is no evidence of anemia or thrombocytopenia. Chemistry Anesthesia grossly within normal limits. Performed a quick incision, there was no purulence drainage, small wick placed and patient struck to remove it tomorrow. Lab Data 06/01/23 18:14 06/01/23 18:14 Labs: Lab Results 06/01/23 06/01/23 Range/Units 18:14 18:14 WBC 5.4 (4.8-10.8) X10*3/uL RBC 4.14 L (4.20-5.50) X10*6/uL Hgb 12.7 (12.0-16.0) g/dl Hct 37.9 (37.0-47.0) % MCV 91.5 (80.0-98.0) fL MCH 30.7 (27.0-33.0) pg MCHC 33.5 (31.0-35.0) g/dl RDW 13.1 (11.0-16.0) % Plt Count 241 (160-400) X10*3/uL MPV 10.0 (9.4-12.3) fL Immature Gran % (Auto) 0.2 (0.0-0.4) % Neut % (Auto) 49.5 (45-73) % Lymph % (Auto) 38.2 (20-40) % [place] % (Auto) 8.9 (2-11) % Eos % (Auto) 2.6 (0-4) % Baso % (Auto) 0.6 (0-2) % Lymph # (Auto) 2.1 (1.2-4.9) X10*3/uL [place] # (Auto) 0.5 (0.1-1.2) X10*3/uL Eos # (Auto) 0.1 (0.0-0.4) X10*3/uL Baso # (Auto) 0.0 (0.0-0.2) X10*3/uL Abs Immat Gran (auto) 0.01 (0.00-0.03) X10*3/uL Absolute Neuts (auto) 2.7 (2.0-8.3) x10*3/uL Absolute Nucleated RBC 0.000 (0.0-0.012) X10*3/uL Nucleated RBC % (auto) 0.0 (0.0-0.2) /100WBC Sodium 140 (135-145) mmol/L Potassium 3.6 (3.3-5.1) mmol/L Chloride 106 (96-108) mmol/L Carbon Dioxide 25 (22-29) mmol/L Anion Gap 13 (12-20) BUN 15 (9-16) mg/dL Creatinine 1.04 (0.5-1.4) mg/dL Estim Creat Clear Calc 68.9 Estimated GFR 57 Random Glucose 113 (60-115) mg/dL Calcium 9.0 (8.4-10.2) mg/dL Total Bilirubin 0.6 (0.0-1.0) mg/dL AST 18 (5-31) U/L ALT 17 (0-31) U/L Alkaline Phosphatase 63 (39-117) U/L Total Protein 6.8 (6.5-8.0) g/dL Albumin 4.1 (3.5-5.0) g/dL Procedures Abscess I/D Site: lower extremity Side (if applicable): right Local Anesthetic: lidocaine 1% Amount of anesthesia used (mL): 1 Technique: incised with blade Amount of fluid expressed (mL): 0.25 Sent for culture/gram staining?: No Irrigation: Yes Packing used?: plain Discharge Plan Discharge Clinical Impression: Abscess of skin or subcutaneous tissue Patient Disposition: Home, Self-Care Instructions: Warm Compress or Soak (ED) Additional Instructions: 1. Reanudar todos los medicamentos caseros seg?n lo recetado. 2. Utilice compresas tibias en el ?maryam para resolver a?n m?s la infecci?n. Retira la gasa ma?corin. 3. Gifty un seguimiento con owusu proveedor de atenci?n primaria los pr?ximos 1 o 2 d?as. Regrese a la maria guadalupe de emergencias si los s?ntomas empeoran. 1. Resume all home medications as prescribed. 2. Please use warm compresses to the area to further resolve the infection. Remove the gauze tomorrow. 3. Please follow-up with your primary care provider next 1-2 days. Return to the ER for any worsening symptoms. Prescriptions: No Action omeprazole 40 mg capsule,delayed release(DR/EC) 40 mg PO DAILY Qty: 14 0RF amoxicillin-pot clavulanate 875-125 mg tablet 1 tab PO BID Qty: 20 0RF ibuprofen 600 mg tablet 600 mg PO Q8H PRN (Reason: fever or pain) Qty: 30 0RF acetaminophen [Tylenol] 325 mg tablet 650 mg PO Q6H PRN (Reason: fever or pain) Qty: 30 0RF Referrals: Mohan Webster MD [Primary Care Provider] - Print Language: Divehi
[2023-06-01 23:37] VITALS: BP 130/71; PULSE 89; RESP 18; TEMP 36.4; O2SAT 98
--- NOTE | 2023-06-01 23:38 | PC.NURSE ---
Dr. Castaneda performed I&D of right inner thigh, patient tolerated procedure well. Discharge instructions provided to patient, patient verbalized understanding.
== END 2023-06-01 23:39 | disposition home or self-care (01) ==
PROVIDERS: Emergency Provider Student in an Organized Health Care Education/Training Program; PCP Internal Medicine
DX: L02.415 Cutaneous abscess of right lower limb (principal); Z79.899 Other long term (current) drug therapy
CPT/HCPCS: 10060; 36415; 80053; 85025; 99283; 99284

== ENCOUNTER 2023-07-14 08:19 | Emergency (ER) | payer OTHER, SELFPAY ==
[2023-07-14 08:29] VITALS: BP 124/88; PULSE 82; RESP 20; TEMP 36.8; O2SAT 100; BMI 28.3
--- NOTE | 2023-07-14 09:10 | ED.BACK ---
HPI - Back Pain/Injury General Chief Complaint: Back Pain/Injury Stated Complaint: Back pain/R leg pain Time Seen by Provider: 07/14/23 09:06 Source: patient Mode of arrival: ambulatory Limitations: no limitations History of Present Illness HPI Narrative: 47 yo Portuguese speaking female with history of fibromylagia, arthritis, HIV on HAART, HLD who presents to the ER for evaluation of severe right lower back pain that radiates to her buttocks and right thigh that started yesterday when she was bending over to pick something up off of the floor. She states she had immediate severe pain and has had limited mobility since. She states the pain did not get any better with her celebrex and gabapentin last night. She denies any numbness or tingling into the leg or groin. No bowel or urinary problems. No fevers and no hx IVDA. MD elicited complaint: back pain and back injury Pertinent past history: prior back pain and arthritis Onset (ago): day(s) (1) Timing: constant Severity: severe Pain scale (0-10): 10 Similar Symptoms Previously: Yes Quality: sharp and stabbing Location: right lower back Radiation: buttocks and right upper leg Exacerbating factors: movement and walking Relieving factors: immobilization and supine Context: bending Associated symptoms: denies other symptoms Work related injury: No Related Data Previous Rx's Medication Instructions Recorded omeprazole 40 mg capsule,delayed 40 mg PO DAILY #14 caps 01/14/21 release amoxicillin 875 mg-potassium 1 tab PO BID #20 tabs 03/18/23 clavulanate 125 mg tablet acetaminophen 325 mg tablet 650 mg (2 x 325 mg) PO Q6H PRN 03/19/23 (Tylenol) fever or pain #30 tabs ibuprofen 600 mg tablet 600 mg PO Q8H PRN fever or pain 03/19/23 #30 tabs cyclobenzaprine 10 mg tablet 10 mg PO TID PRN muscle spasm #14 07/14/23 tabs oxycodone 5 mg tablet 5 mg PO Q6H PRN severe pain (scale 07/14/23 score 7-10) #8 tabs prednisone 20 mg tablet 40 mg (2 x 20 mg) PO DAILY #10 tabs 07/14/23 Allergies Allergy/AdvReac Type Severity Reaction Status Date / Time No Known Allergies Allergy Verified 06/01/23 19:40 Review of Systems Review of Systems: Yes all other systems are reviewed and are negative [facility] Past Medical History Medical History delivery delivered HIV (human immunodeficiency virus infection) HLD (hyperlipidemia) Social History Social History Alcohol intake: never Advance Directives: No Advance Directives Information Provided: No Physical Exam Vital Signs: Vital Signs: Last Vital Signs Temp 98.2 F 07/14/23 08:29 Pulse 82 07/14/23 08:29 Resp 20 07/14/23 08:29 BP 124/88 07/14/23 08:29 Pulse Ox 100 07/14/23 08:29 O2 Del Method Room Air 07/14/23 08:29 BMI result Body Mass Index 28.3 Appearance: Alert. Oriented X3. No acute distress. Head: normocephalic, atraumatic. Eyes: Pupils equal, round and reactive to light. ENT: Pharynx normal. No tonsillar swelling or exudate. Neck: Normal inspection. Neck supple. CVS: Normal heart rate and rhythm. Pulses normal. Respiratory: No respiratory distress. Breath sounds normal. Back: +tenderness to the right lumbar region and SI joint. +straight leg raise test Skin: Skin warm and dry. Normal skin color. Normal skin turgor. No rashes. Extremities: No lower extremity edema. No joint swelling. Neuro/psych: Oriented X 3. Medications Administered Discontinued Medications Generic Name Dose Route Start Last Admin Trade Name Freq PRN Reason Stop Dose Admin Acetaminophen 975 mg 07/14/23 09:27 07/14/23 09:37 Acetaminophen 325 Mg Tablet PO 07/14/23 09:28 975 mg ONCE ONE Administration Cyclobenzaprine HCl 10 mg 07/14/23 09:27 07/14/23 09:37 Cyclobenzaprine Hcl 10 Mg Tablet PO 07/14/23 09:28 10 mg ONCE ONE Administration Ketorolac Tromethamine 30 mg 07/14/23 09:27 07/14/23 09:36 Ketorolac Tromethamine 30 Mg/Ml Vial IM 07/14/23 09:28 30 mg ONCE ONE Administration Oxycodone HCl 5 mg 07/14/23 09:27 07/14/23 09:38 Oxycodone Hcl Immed Release 5 Mg Tablet PO 07/14/23 09:28 5 mg ONCE ONE Administration Prednisone 60 mg 07/14/23 09:27 07/14/23 09:38 Prednisone 20 Mg Tablet PO 07/14/23 09:28 60 mg ONCE ONE Administration Medical Decision Making Medical Decision Making [facility] Narrative: 47 yo female presenting with right lower back pain radiating to right thigh after bending down to pick something up off of the floor yesterday. no red flag symptoms. likely sciatica vs lumbar radiculopathy. pain improved today after steroids and pain control meds. she is feeling better. now ambulatory. stable for d/c home with steroids and pain control. encouarged close f/u with PCP and return precautions reviewed w/ chief of staff Differential Diagnosis Differential Diagnoses: The differential diagnosis associated with the presentation includes Inflammatory disorders, malignancy, trauma, osteoporosis, nerve root compression, radiculopathy, plexopathy, degenerative disc disease, disc herniation, spinal stenosis, sacroiliac joint dysfunction, facet joint injury, and less likely infection?like abscess or diskitis External Record Review External record reviewed: Office record, Outpatient record, Prior outpatient labs and Prior outpatient radiology Prescription Management I considered prescription management with: Pain Medication Chronic Conditions Patient?s care impacted by: Other (obesity, arthritis) Critical Care Time Critical Care Time Critical Care Time: No Discharge Plan Discharge Clinical Impression: Sciatica Qualifiers: Laterality: right Qualified Code(s): M54.31 - Sciatica, right side Patient Disposition: Home, Self-Care Instructions: Sciatica (ED), Acute Low Back Pain (ED) Additional Instructions: No bending, lifting or twisting. Use ice several times per day for 20 minutes at a time for the next 48 hours and then change to heat. Take medications as prescribed to help with pain and discomfort. Follow up with your Primary Care Doctor this week. If your pain worsens, if you develop new numbness, tingling, weakness, loss of function or incontinence call 911 or come back to the ER right away for evaluation. Sin doblar, levantar ni torcer. Use hielo varias veces al d?a cirilo 20 minutos a la vez cirilo las siguientes 48 horas y luego c?mbielo a calor. [place] los medicamentos recetados para ayudar con el dolor y el malestar. [place] un seguimiento con owusu m?dico de atenci?n primaria esta semana. Si owusu dolor empeora, si desarrolla nuevo entumecimiento, hormigueo, debilidad, p?rdida de funci?n o incontinencia, llame al 911 o regrese a la maria guadalupe de emergencias de inmediato para luis alberto evaluaci?n. Prescriptions: New oxycodone 5 mg tablet 5 mg PO Q6H PRN (Reason: severe pain (scale score 7-10)) Qty: 8 0RF Rx Instructions: Partial Fill upon patient request. prednisone 20 mg tablet 40 mg PO DAILY Qty: 10 0RF cyclobenzaprine 10 mg tablet 10 mg PO TID PRN (Reason: muscle spasm) Qty: 14 0RF No Action omeprazole 40 mg capsule,delayed release(DR/EC) 40 mg PO DAILY Qty: 14 0RF amoxicillin-pot clavulanate 875-125 mg tablet 1 tab PO BID Qty: 20 0RF ibuprofen 600 mg tablet 600 mg PO Q8H PRN (Reason: fever or pain) Qty: 30 0RF acetaminophen [Tylenol] 325 mg tablet 650 mg PO Q6H PRN (Reason: fever or pain) Qty: 30 0RF Referrals: Mohan Webster MD [Primary Care Provider] - Interventions: ED Discharge Assessment Last Done: 07/14/23 11:08 Discharge Date/Time: 07/14/23 11:08 Print Language: Portuguese
[2023-07-14] MEDS: Ketorolac Tromethamine 30 MG/ML VIAL IM (09:36)
[2023-07-14] MEDS: Cyclobenzaprine HCl 10 MG TABLET PO (09:37)
[2023-07-14] MEDS: Acetaminophen 325 MG TABLET 975 MG PO (09:37)
[2023-07-14] MEDS: predniSONE 20 MG TABLET 60 MG PO (09:38)
[2023-07-14] MEDS: oxyCODONE HCl Immed Release 5 MG TABLET PO (09:38)
== END 2023-07-14 11:08 | disposition home or self-care (01) ==
PROVIDERS: Emergency Provider Emergency Medicine Emergency Medical Services; PCP Internal Medicine
DX: M54.41 Lumbago with sciatica, right side (principal); B20 Human immunodeficiency virus [HIV] disease; E78.5 Hyperlipidemia, unspecified
CPT/HCPCS: 96372; 99283; 99284; J1885

== ENCOUNTER 2023-11-19 11:42 | Outpatient (REF) | payer MEDICAID, SELFPAY ==
--- NOTE | ~2023-11-19 | XR_ITS ---
EXAMINATION: XR LUMBOSACRAL SPINE WITH OBLIQUES CLINICAL INFORMATION: Radiculopathy. COMPARISON: Chest of 03/18/2023. CT abdomen and pelvis of 01/13/2021. TECHNIQUE: AP, both oblique, and lateral views of the lumbar spine. Lateral view of the lumbosacral junction. FINDINGS: Moderate degenerative changes in the bilateral sacroiliac joints and on very limited images of the bilateral hips. Atherosclerotic aortic calcifications. Facet arthritis in the [id number] lumbar spine. Moderate multilevel lumbar spondylosis with loss of disc space height notable at L3-L4 and L5-S1. XR/XR lumbar spine 4V min IMPRESSION: Moderate multilevel lumbar spondylosis with loss of disc space height notable at L3-L4 and L5-S1.
== END 2023-11-19 11:43 | disposition home or self-care (01) ==
LOC: HO.XRAY 11:42
PROVIDERS: PCP Internal Medicine; Visit Provider Physician Assistant
DX: M54.16 Radiculopathy, lumbar region (principal)
CPT/HCPCS: 72110

== ENCOUNTER 2024-03-21 10:45 | Emergency (ER) | payer MEDICAID, SELFPAY ==
--- NOTE | ~2024-03-21 | XR_ITS ---
EXAMINATION: XR FOREARM, RIGHT CLINICAL INFORMATION: Arm pain COMPARISON: None available. TECHNIQUE: AP and lateral views of the right forearm were obtained. FINDINGS: The bones and soft tissues are normal. No fracture. Imaged portions of the elbow and wrist are unremarkable. XR/XR forearm RT 2V IMPRESSION: Normal right forearm.
[2024-03-21 11:18] VITALS: BP 149/89; PULSE 89; RESP 20; TEMP 36.3; O2SAT 98; BMI 31.7
--- NOTE | 2024-03-21 11:23 | ED_ITS ---
HPI - General Adult General Chief complaint: Extremity Injury, Lower Stated complaint: Skin issue? Time Seen by Provider: 03/21/24 11:28 Source: patient Mode of arrival: ambulatory Limitations: language barrier History of Present Illness HPI narrative: 48-year-old female with no significant past medical history presents to the emergency department with complaints of pain in her right lower arm for the past 2 weeks. She reports she was lifting heavy groceries when she heard a pop and felt immediate pain in the low arm. She reports the pain is worsened over the last 2 days and states that she has been losing strength in the hand. She denies any paresthesias reports decreased range of motion and pain. Pertinent positives and negatives discussed in HPI Related Data Previous Rx's ?Medication ?Instructions ?Recorded omeprazole 40 mg capsule,delayed 40 mg PO DAILY #14 caps 01/14/21 release amoxicillin 875 mg-potassium 1 tab PO BID #20 tabs 03/18/23 clavulanate 125 mg tablet acetaminophen 325 mg tablet 650 mg (2 x 325 mg) PO Q6H PRN 03/19/23 (Tylenol) fever or pain #30 tabs ibuprofen 600 mg tablet 600 mg PO Q8H PRN fever or pain 03/19/23 #30 tabs cyclobenzaprine 10 mg tablet 10 mg PO TID PRN muscle spasm #14 07/14/23 tabs oxycodone 5 mg tablet 5 mg PO Q6H PRN severe pain (scale 07/14/23 score 7-10) #8 tabs prednisone 20 mg tablet 40 mg (2 x 20 mg) PO DAILY #10 tabs 07/14/23 cyclobenzaprine 5 mg tablet 5 mg PO TID PRN muscle spasm #14 03/21/24 tabs ibuprofen 600 mg tablet 600 mg PO Q8H PRN pain #30 tabs 03/21/24 Allergies Allergy/AdvReac Type Severity Reaction Status Date / Time No Known Allergies Allergy Verified 03/21/24 11:21 Review of Systems Review of Systems: Yes all other systems are reviewed and are negative PMF Past Medical History Medical History delivery delivered HIV (human immunodeficiency virus infection) HLD (hyperlipidemia) Social History Social History Alcohol intake: never Advance Directives: No Advance Directives Information Provided: Yes Do you have a plan to hurt others: No Plan Physical Exam ED Vital Signs: Vital Signs - 24 hr 03/21/24 11:18 03/21/24 12:02 03/21/24 14:34 Temperature 97.3 F Pulse Rate 89 82 69 Respiratory Rate 20 17 17 Blood Pressure 149/89 H 138/73 129/77 Pulse Oximetry 98 100 100 Oxygen Delivery Method Room Air Room Air Room Air 03/21/24 14:37 Temperature 97.3 F Pulse Rate 69 Respiratory Rate 17 Blood Pressure 129/77 Pulse Oximetry 100 Oxygen Delivery Method Room Air BMI result Body Mass Index 31.7 Nursing notes and vital signs reviewed. GENERAL APPEARANCE: A&0 x 4, generally well appearing, no acute distress HENMT: Normal to inspection, atraumatic, face symmetrical. Normal external ears, nose, and oropharynx clear. EYE: PERRLA, EOM intact, structures appear normal NECK: Supple without stiffness or restricted ROM. HEART: Normal rate and regular rhythm, normal S1/S2, no M/R/G LUNGS: LS CTA, moving air well. Able to speak in complete sentences. No crackles, wheezes, or rhonchi auscultated BACK: No CVAT, no obvious deformity EXTREMITIES: Normal capillary refill. Decreased range of motion of right elbow with tenderness to palpation. No significant swelling, erythema, or ecchymosis noted. NEUROLOGICAL: Alert and oriented, moving all 4 extremities with equal strength. CN not formally tested but appearing grossly intact. Observed to ambulate with normal gait. Cognition normal SKIN: Warm and dry without any lesions, rash, or visible sores Course Course Course Narrative: This is a Rapid Medical Exam performed in triage by Emma Steel PA-C. Full HPI, ROS and PE to be performed by primary ED provider. 48 year-old F w/ PMHx HIV, HLD presenting to the ED c/o L arm pain x2 weeks, worse with movement s/p picking up heavy bag. reports strength. denies fall, CP, SOB, neck pain PE: +R forearm with mild ttp, no deformity. Neurovascularly intact distally. No midline cervical spinous tenderness Plan: EKG, x-ray ordered Medications Administered Discontinued Medications Generic Name Dose Route Start Last Admin Trade Name Freq PRN Reason Stop Dose Admin Acetaminophen 975 mg 03/21/24 13:44 03/21/24 13:51 Acetaminophen 325 Mg Tablet PO 03/21/24 13:45 975 mg ONCE ONE Administration Ketorolac Tromethamine 15 mg 03/21/24 13:44 03/21/24 13:51 Ketorolac Tromethamine 15 Mg/Ml Vial IM 03/21/24 13:45 15 mg ONCE ONE Administration Medical Decision Making Medical Decision Making MDM Narrative: Old records reviewed for previous imaging, lab studies, ECGs, and notes. Patient was assessed the emergency department with no acute distress or toxicity noted. X-ray right forearm completed showing no evidence of acute fractures or dislocations. Patient's symptoms are consistent with an acute strain of the elbow and sling provided. Cyclobenzaprine Differential Diagnosis Differential Diagnoses: The differential diagnosis associated with the presentation includes But not limited to fracture, dislocation, sprain, strain, contusion, tendinitis, bursitis, tendon/nerve/ligament injury Independent Interpretation I performed an independent interpretation of an: Plain X-Ray Interpretation: As negative for acute findings Discharge Plan Discharge Clinical Impression: Elbow strain Patient Disposition: Home, Self-Care Instructions: Muscle Strain (ED), How to Use a Sling (ED), R.I.C.E. Treatment (ED), Cold Compress or Soak (ED) Prescriptions: New cyclobenzaprine 5 mg tablet 5 mg PO TID PRN (Reason: muscle spasm) Qty: 14 0RF ibuprofen 600 mg tablet 600 mg PO Q8H PRN (Reason: pain) Qty: 30 0RF No Action omeprazole 40 mg capsule,delayed release(DR/EC) 40 mg PO DAILY Qty: 14 0RF oxycodone 5 mg tablet 5 mg PO Q6H PRN (Reason: severe pain (scale score 7-10)) Qty: 8 0RF Rx Instructions: Partial Fill upon patient request. prednisone 20 mg tablet 40 mg PO DAILY Qty: 10 0RF cyclobenzaprine 10 mg tablet 10 mg PO TID PRN (Reason: muscle spasm) Qty: 14 0RF amoxicillin-pot clavulanate 875-125 mg tablet 1 tab PO BID Qty: 20 0RF ibuprofen 600 mg tablet 600 mg PO Q8H PRN (Reason: fever or pain) Qty: 30 0RF acetaminophen [Tylenol] 325 mg tablet 650 mg PO Q6H PRN (Reason: fever or pain) Qty: 30 0RF Referrals: [facility] [place] Group] Mohan Webster MD [Primary Care Provider] - Stand Alone Forms: Work/School Release Interventions: ED Discharge Assessment Last Done: 03/21/24 14:37 Discharge Date/Time: 03/21/24 14:38 Print Language: [place] Citizen
--- NOTE | 2024-03-21 11:25 | ECG_ITS ---
Test Reason : r arm pain Blood Pressure : / mmHG Vent. Rate : 076 BPM Atrial Rate : 076 BPM P-R Int : 152 ms QRS Dur : 084 ms QT Int : 392 ms P-R-T Axes : 035 004 022 degrees QTc Int : 441 ms Normal sinus rhythm Minimal voltage criteria for LVH, may be normal variant ( R in aVL ) Borderline ECG When compared to the previous EKG of No significant changes seen Referred By: Emma Steel Electronically Signed By:PHUC CRAMER MD
--- NOTE | 2024-03-21 11:33 | PC.NURSE ---
pt refusing EKG until senior game developer comes in
--- NOTE | 2024-03-21 11:44 | MHC.EDTECH ---
This digital campaign manager took and EKG on this pt accompanied by an fire sprinkler inspector.
[2024-03-21 12:02] VITALS: BP 138/73; PULSE 82; RESP 17; O2SAT 100
[2024-03-21] MEDS: Acetaminophen 325 MG TABLET 975 MG PO (13:51)
[2024-03-21] MEDS: Ketorolac Tromethamine 15 MG/ML VIAL IM (13:51)
--- NOTE | 2024-03-21 13:54 | PC.NURSE ---
pt medicated per order
[2024-03-21 14:34] VITALS: BP 129/77; PULSE 69; RESP 17; O2SAT 100
[2024-03-21 14:37] VITALS: BP 129/77; PULSE 69; RESP 17; TEMP 36.3; O2SAT 100
== END 2024-03-21 14:38 | disposition home or self-care (01) ==
PROVIDERS: Emergency Provider Emergency Medicine; PCP Internal Medicine
DX: S46.911A Strain of unspecified muscle, fascia and tendon at shoulder and upper arm level, right arm, initial encounter (principal); M79.601 Pain in right arm; R94.31 Abnormal electrocardiogram [ECG] [EKG]; X50.0XXA Overexertion from strenuous movement or load, initial encounter; Y93.9 Activity, unspecified; Y92.9 Unspecified place or not applicable; Y99.8 Other external cause status; Z79.899 Other long term (current) drug therapy
CPT/HCPCS: 73090; 93005; 96372; 99284; J1885

== ENCOUNTER → 2024-03-21 11:25 | Outpatient (BNV) | payer MEDICAID, SELFPAY | PROVIDERS: Emergency Provider Emergency Medicine; PCP Internal Medicine; Visit Provider Internal Medicine Cardiovascular Disease | DX: M79.601 Pain in right arm (principal) | CPT/HCPCS: 93010 ==

== ENCOUNTER 2024-04-15 12:32 | Outpatient (AMB) | payer MEDICAID, SELFPAY ==
--- NOTE | 2024-04-15 12:34 | A.OFFVIS_ITS ---
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 Pt states she has had pain in her right lower arm for the past 2 weeks. She reports she was lifting heavy groceries when she heard a pop and felt immediate pain in the low arm. Pt states the hospital put her in a sling that she has been wearing and a tennis elbow brace. 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 [employer]umble [employer] Turret Lathe Operator Language: Drum Attendant Name: Bhargav ([id number]) Allergies No Known Allergies Allergy (Verified 04/15/24 12:35) Medication List - Last Reconciled 04/15/24 by Willow Szymanski PA-C acetaminophen (Tylenol) 650 mg (2 x 325 mg) PO Q6H PRN celecoxib 200 mg PO DAILY cetirizine 10 mg PO DAILY cyclobenzaprine 5 mg PO TID PRN ergocalciferol (vitamin D2) 1,250 mcg PO QWEEK hydrochlorothiazide 12.5 mg PO DAILY lorazepam 1 mg PO BID omeprazole 40 mg PO DAILY quetiapine 400 mg PO BEDTIME zolpidem 10 mg PO BEDTIME PRN HPI HPI INSPECTOR PRECISION- RT elbow strain: Details: 48-year-old female who presents to the office today with an manager of training for an evaluation of right elbow injury. She reports she was lifting groceries when she heard a crack and felt immediate pain in her lower arm, about a month ago. She was seen at a hospital where she was given a sling that she has been wearing and a tennis brace. She currently states she has pain in her elbow and is unable to make a closed fist. [facility] Medical History delivery delivered HIV (human immunodeficiency virus infection) HLD (hyperlipidemia) Social History Alcohol intake: never Review of Systems Const All systems reviewed & are unremarkable except as noted in HPI and below Physical Exam Const General: cooperative, healthy appearing, comfortable, no acute distress, well developed and alert Orientation/consciousness: patient oriented x3 HEENT Head: Yes normal to inspection, Yes normocephalic and Yes atraumatic Eyes General: appearance normal, both eyes and all related structures Resp Effort & Inspection: normal respiratory effort and able to speak in complete sentences Cardio Rate: regular rate Peripheral pulses: Peripheral pulses 2+ throughout GI Palpation (GI): Soft to palpation Skin Lesions: no lesions Rashes: no rashes Neuro General: patient oriented x3 Extrem Other: Right elbow: Skin intact. No erythema or swelling. ROM full without pain. Tend erness over the lateral epicondyle and pain with resisted wrist extension. NVI. Assessment & Plan Assessment & Plan (1) Lateral epicondylitis, right elbow: Code(s): M77.11 - Lateral epicondylitis, right elbow Category: Medical Plan I recommend a course of occupational therapy to work on ROM, stretching and strengthening exercises. The patient was very adamant on not doing physical therapy as she feels this does not work and states she has too much pain. She insisted that I prescribe her pain medication which I declined. I recommended the use of anti-inflammatories or Tylenol but she states it provides no help. She also mentioned she wanted a surgery in her arm but I explained there is nothing which would require surgical intervention. I reiterated she would straightly benefit from physical therapy which she again declined, asking me for pain medication. I advised she talks about this with her provider to discuss this further. She should discontinue her sling. I explain the symptoms may resolve in 6 weeks she is compliant with the treatment recommended. She will follow-up as needed. ? Orders: Orders OT Evaluation and Treatment Today M77.11 - Lateral epicondylitis, right elbow Medications: Discontinued cyclobenzaprine Discontinued Reason: Patient no longer taking 10 mg PO TID PRN 14 tabs 0RF muscle spasm oxycodone Partial Fill upon patient request. Discontinued Reason: Patient no longer taking 5 mg PO Q6H PRN 8 tabs 0RF severe pain (scale score 7-10) amoxicillin-pot clavulanate 875-125 mg Discontinued Reason: Patient no longer taking 1 tab PO BID 20 tabs 0RF ibuprofen Discontinued Reason: Patient no longer taking 600 mg PO Q8H PRN 30 tabs 0RF fever or pain prednisone Discontinued Reason: Patient no longer taking 40 mg (2 x 20 mg) PO DAILY 10 tabs 0RF ibuprofen Discontinued Reason: Patient no longer taking 600 mg PO Q8H PRN 30 tabs 0RF pain Patient Instructions: Scribed for Willow Szymanski PA-C, by Rg Delgado, medical assisting program director, on 04/15/2024 at 1:15 PM EST.? I, Yosef-Ashlie Szymanski PA-C, have personally reviewed and agree with the information entered by the scribe. Coding Level of Care Code New Pt Level 3 (00973) Diagnoses Lateral epicondylitis, right elbow M77.11
== END 2024-04-15 12:58 | disposition home or self-care (01) ==
PROVIDERS: PCP Internal Medicine; Visit Provider Physician Assistant
DX: M77.11 Lateral epicondylitis, right elbow (principal)
CPT/HCPCS: 99203

== ENCOUNTER → 2024-04-15 12:32 | Outpatient (BNVA) | payer MEDICAID, SELFPAY | PROVIDERS: PCP Internal Medicine; Visit Provider Physician Assistant | DX: M77.11 Lateral epicondylitis, right elbow (principal) | CPT/HCPCS: 99202 ==

== ENCOUNTER 2024-05-30 00:33 | Emergency (ER) | payer MEDICAID, SELFPAY ==
[2024-05-30 00:52] VITALS: BP 168/102; PULSE 89; RESP 18; TEMP 36.8; O2SAT 97; BMI 31.1
[2024-05-30 02:09] VITALS: BP 131/92; PULSE 90; RESP 16; TEMP 36.5; O2SAT 99
[2024-05-30 02:20] VITALS: BP 131/92; PULSE 90; RESP 16; TEMP 36.5; O2SAT 99
--- NOTE | 2024-05-31 04:31 | ED_ITS ---
HPI - Skin/Abscess/Foreign Bdy General Chief complaint: Skin/Abscess/Foreign Body Stated complaint: Genitalia issues Time Seen by Provider: 05/30/24 01:57 Source: patient Mode of arrival: ambulatory Limitations: no limitations History of Present Illness ED Provider: herrera MULLINS narrative: Patient is complaining small pimple left gluteal area for last few days saying that is getting bigger and more painful Related Data Home Medications ?Medication ?Instructions ?Recorded ?Confirmed celecoxib 200 mg capsule 200 mg PO DAILY 04/15/24 04/15/24 cetirizine 10 mg tablet 10 mg PO DAILY 04/15/24 04/15/24 ergocalciferol (vitamin D2) 1,250 1,250 mcg PO QWEEK 04/15/24 04/15/24 mcg (50,000 unit) capsule hydrochlorothiazide 12.5 mg capsule 12.5 mg PO DAILY 04/15/24 04/15/24 lorazepam 1 mg tablet 1 mg PO BID 04/15/24 04/15/24 quetiapine 400 mg tablet 400 mg PO BEDTIME 04/15/24 04/15/24 zolpidem 10 mg tablet 10 mg PO BEDTIME PRN 04/15/24 04/15/24 Previous Rx's ?Medication ?Instructions ?Recorded omeprazole 40 mg capsule,delayed 40 mg PO DAILY #14 caps 01/14/21 release acetaminophen 325 mg tablet 650 mg (2 x 325 mg) PO Q6H PRN 03/19/23 (Tylenol) fever or pain #30 tabs cyclobenzaprine 5 mg tablet 5 mg PO TID PRN muscle spasm #14 03/21/24 tabs Allergies Allergy/AdvReac Type Severity Reaction Status Date / Time No Known Allergies Allergy Verified 05/30/24 00:55 Review of Systems 2 Review of Systems: Yes all other systems are reviewed and are negative PMFSH Past Medical History Medical History delivery delivered HLD (hyperlipidemia) HIV (human immunodeficiency virus infection) Social History Social History Alcohol intake: never Advance Directives: No Advance Directives Information Provided: No Physical Exam 2 Vital Signs: Vital Signs: Last Vital Signs Temp 97.7 F 05/30/24 02:20 Pulse 90 05/30/24 02:20 Resp 16 05/30/24 02:20 BP 131/92 H 05/30/24 02:20 Pulse Ox 99 05/30/24 02:20 O2 Del Method Room Air 05/30/24 02:20 BMI result Body Mass Index 31.1 Skin: Full body images: 1. Small pimple while the size of 0.5 cm without any significant drainage needle aspiration was done without any pus discharge Medical Decision Making Medical Decision Making MDM Narrative: Patient with small folliculitis without any pus needle aspiration showed no deeper infection will discharge patient home on supportive treatment Discharge Plan Discharge Clinical Impression: Folliculitis Patient Disposition: Home, Self-Care Instructions: Folliculitis (ED) Additional Instructions: Local care as advised Prescriptions: No Action omeprazole 40 mg capsule,delayed release(DR/EC) 40 mg PO DAILY Qty: 14 0RF acetaminophen [Tylenol] 325 mg tablet 650 mg PO Q6H PRN (Reason: fever or pain) Qty: 30 0RF cyclobenzaprine 5 mg tablet 5 mg PO TID PRN (Reason: muscle spasm) Qty: 14 0RF hydrochlorothiazide 12.5 mg capsule 12.5 mg PO DAILY celecoxib 200 mg capsule 200 mg PO DAILY zolpidem 10 mg tablet 10 mg PO BEDTIME PRN ergocalciferol (vitamin D2) 1,250 mcg (50,000 unit) capsule 1,250 mcg PO QWEEK quetiapine 400 mg tablet 400 mg PO BEDTIME lorazepam 1 mg tablet 1 mg PO BID cetirizine 10 mg tablet 10 mg PO DAILY Interventions: ED Discharge Assessment Last Done: 05/30/24 02:20 Discharge Date/Time: 05/30/24 02:20 Print Language: [place]ian
== END 2024-05-30 02:20 | disposition home or self-care (01) ==
PROVIDERS: Emergency Provider Internal Medicine
DX: L73.9 Follicular disorder, unspecified (principal); Z79.899 Other long term (current) drug therapy
CPT/HCPCS: 99282; 99283

== ENCOUNTER 2024-09-25 08:45 | Emergency (ER) | payer MEDICAID, SELFPAY ==
--- NOTE | ~2024-09-25 | XR_ITS ---
CLINICAL HISTORY: cough, fever 2 view chest x-ray. Comparison: CR/SR - XR CHEST 1V - 03/18/2023 04:14 PM EDT CR - CHEST 2 VIEWS - 01/25/2018 03:17 PM EDT Findings: Normal lung volumes. Lungs are clear. No pneumothorax or pleural effusion. Heart size normal. No passive venous congestion. No midline shift or tracheal deviation. No acute fracture. Impression: 1. No acute cardiopulmonary disease. This document has been electronically signed by: Chetan Land MD on 09/25/2024 09:59:06
[2024-09-25 08:47] VITALS: BP 108/80; PULSE 102; RESP 20; TEMP 38.4; O2SAT 99; BMI 31.2
--- NOTE | 2024-09-25 08:55 | ED.GENADULT ---
HPI - General Adult General Chief complaint: General Medical Stated complaint: Flu symptoms Time Seen by Provider: 09/25/24 08:53 Source: patient and RN notes reviewed Mode of arrival: ambulatory Limitations: no limitations History of Present Illness ED Provider: Desi Gonzalez PA-C HPI narrative: This is a 48-year-old female, history of HIV - reporting last CD 4 count undetectable and hyperlipidemia, who presents emergency department with complaints of fever, headaches, nausea, vomiting, body aches which started last night. Patient denies any recent sick contacts. Denies taking any medications prior to arrival. She denies any chest pain or shortness for breath. No abdominal pain. No urinary symptoms. No diarrhea constipation. No other complaints or concerns at this time. MD complaint: Fever Onset (ago): day(s) Quality: aching Pain Consistency: constant Relieving factors: none Exacerbating factors: none Associated symptoms: fever/chills, headaches and nausea/vomiting Treatments prior to arrival: none Related Data Home Medications ?Medication ?Instructions ?Recorded ?Confirmed celecoxib 200 mg capsule 200 mg PO DAILY 04/15/24 04/15/24 cetirizine 10 mg tablet 10 mg PO DAILY 04/15/24 04/15/24 ergocalciferol (vitamin D2) 1,250 1,250 mcg PO QWEEK 04/15/24 04/15/24 mcg (50,000 unit) capsule hydrochlorothiazide 12.5 mg capsule 12.5 mg PO DAILY 04/15/24 04/15/24 lorazepam 1 mg tablet 1 mg PO BID 04/15/24 04/15/24 quetiapine 400 mg tablet 400 mg PO BEDTIME 04/15/24 04/15/24 zolpidem 10 mg tablet 10 mg PO BEDTIME PRN 04/15/24 04/15/24 Previous Rx's ?Medication ?Instructions ?Recorded omeprazole 40 mg capsule,delayed 40 mg PO DAILY #14 caps 01/14/21 release acetaminophen 325 mg tablet 650 mg (2 x 325 mg) PO Q6H PRN 03/19/23 (Tylenol) fever or pain #30 tabs cyclobenzaprine 5 mg tablet 5 mg PO TID PRN muscle spasm #14 03/21/24 tabs Allergies Allergy/AdvReac Type Severity Reaction Status Date / Time No Known Allergies Allergy Verified 09/25/24 08:49 Review of Systems Review of Systems: Yes all other systems are reviewed and are negative Constitutional: Constitutional: Reports as per [facility] Past Medical History Medical History delivery delivered HLD (hyperlipidemia) HIV (human immunodeficiency virus infection) Social History Social History Alcohol intake: never Smoked in Last 30 Days: No Use of substances other than those prescribed or required for medical reasons: No Advance Directives: No Advance Directives Information Provided: No Patient : No Physical Exam ED Vital Signs: Vital Signs - 24 hr 09/25/24 11:08 09/25/24 11:17 09/25/24 13:12 Temperature 99 F 97.8 F Pulse Rate 80 80 Respiratory Rate 18 18 18 Blood Pressure 122/80 Pulse Oximetry 99 Oxygen Delivery Method Room Air BMI result Body Mass Index 31.2 Const General: cooperative, comfortable and no acute distress Orientation/consciousness: patient oriented x3 Limitations: no limitations HENMT Head: Yes normal to inspection, Yes normocephalic and Yes atraumatic Ears: hearing grossly normal bilaterally and TM's normal bilaterally General nose exam: Normal external nose present Face and sinus: Yes normal facial exam Mouth: Normal oral and palatal mucosa present, oropharynx normal and moist mucous membranes Throat: Yes posterior oropharynx normal Eyes General: appearance normal, both eyes and all related structures Eyelids: Yes eyelids normal Conjunctivae: conjunctivae normal Sclerae: sclerae normal Pupils: Equal, round and reactive pupils present EOM: EOMs intact bilaterally Neck Neck: Yes normal visual inspection, Yes full ROM and Yes no lymphadenopathy Lymphatic: no lymphadenopathy noted Chest Chest palpation & inspection: normal inspection of the chest Resp Effort & Inspection: normal respiratory effort and able to speak in complete sentences Auscultation: clear to auscultation bilaterally, no crackles, no rales, no rhonchi and no wheezes Cardio Rate: regular rate Rhythm: regular rhythm Heart sounds: S1 normal heart sound present and S2 normal heart sound present GI Other: Abdomen is soft, nontender, nondistended Inspection: Yes normal to inspection Skin General skin exam: no rashes or lesions noted Trauma: no lacerations or abrasions Wounds: no wounds Neuro General: patient oriented x3 and moves all extremities Cranial nerves: Yes Equal, round and reactive pupils present Extrem General: Yes normal to inspection Right upper extremity: normal to inspection Left upper extremity: normal to inspection Right lower extremity: normal to inspection Left lower extremity: normal to inspection Course Reevaluation(s) Reevaluation #1: Fever resolved after fluids and tylenol. Overall workup today reassuring, UA noninfected. Sxs likely viral in nature. Pt eager for discharge. Pt stable for d/c. Medications Administered Discontinued Medications Generic Name Dose Route Start Last Admin Trade Name Bharat PRN Reason Stop Dose Admin Acetaminophen 975 mg 09/25/24 09:07 09/25/24 09:23 Acetaminophen 325 Mg Tablet PO 09/25/24 09:08 975 mg ONCE ONE Administration Sodium Chloride 1,000 mls @ 999 mls/hr 09/25/24 09:09 09/25/24 12:16 Ns IV 09/25/24 10:09 Infused .Q1H1M ONE Infusion Morphine Sulfate 4 mg 09/25/24 11:11 09/25/24 11:17 Morphine Sulfate 4 Mg/Ml Cartridge IVPUSH 09/25/24 11:12 4 mg ONCE ONE Administration Protocol Ondansetron HCl 4 mg 09/25/24 09:14 09/25/24 09:24 Ondansetron Hcl 4 Mg/2 Ml Vial IVPUSH 09/25/24 09:15 4 mg ONCE ONE Administration Medical Decision Making Medical Decision Making [facility] Narrative: This is a 48-year-old female who presents emergency department with complaints of fever, body aches, headaches, nausea and vomiting which started last night. On arrival, patient tachycardic at 102bpm, with a temperature of 101.1?. She denies taking any medications prior to arrival. Abdomen is soft and nontender. Lungs are clear to auscultation bilaterally. Differential diagnoses include influenza, COVID, RSV, pneumonia. Tachycardia secondary to temperature. Will obtain labs, chest x-ray, UA, lactic and blood cultures. At this point, not starting antibiotics as tachycardia is likely attributed to fever, and symptoms sound like influenza. Will continue to closely monitor. Differential Diagnosis Differential Diagnoses: The differential diagnosis associated with the presentation includes See above Admission/Observation Consideration of admission/observation: Escalation of care including admission/observation considered Lab Data [facility] Lab Attestation statement: I reviewed the patient's lab results. No leukocytosis, stable H&H, no evidence of DRE, lactic normal. negative troponin.strep negative. viral swabs negative. 09/25/24 09:22 09/25/24 09:22 Labs: Lab Results 09/25/24 09/25/24 09/25/24 Range/Units 09:09 09:22 11:19 WBC 10.8 (4.8-10.8) X10*3/uL RBC 4.18 L (4.20-5.50) X10*6/uL Hgb 13.3 (12.0-16.0) g/dl Hct 38.6 (37.0-47.0) % MCV 92.3 (80.0-98.0) fL MCH 31.8 (27.0-33.0) pg MCHC 34.5 (31.0-35.0) g/dl RDW 13.2 (11.0-16.0) % Plt Count 246 (160-400) X10*3/uL MPV 10.7 (9.4-12.3) fL Immature Gran % (Auto) 0.4 (0.0-0.4) % Neut % (Auto) 85.0 H (45-73) % Lymph % (Auto) 7.7 L (20-40) % [place]duffie % (Auto) 5.1 (2-11) % Eos % (Auto) 1.4 (0-4) % Baso % (Auto) 0.4 (0-2) % Lymph # (Auto) 0.8 L (1.2-4.9) X10*3/uL [place]ff[place] # (Auto) 0.6 (0.1-1.2) X10*3/uL Eos # (Auto) 0.2 (0.0-0.4) X10*3/uL Baso # (Auto) 0.0 (0.0-0.2) X10*3/uL Abs Immat Gran (auto) 0.04 H (0.00-0.03) X10*3/uL Absolute Neuts (auto) 9.2 H (2.0-8.3) x10*3/uL Absolute Nucleated RBC 0.000 (0.0-0.012) X10*3/uL Nucleated RBC % (auto) 0.0 (0.0-0.2) /100WBC Sodium 140 (135-145) mmol/L Potassium 3.8 (3.3-5.1) mmol/L Chloride 107 (96-108) mmol/L Carbon Dioxide 25 (22-29) mmol/L Anion Gap 12 (12-20) BUN 10 (9-16) mg/dL Creatinine 1.04 (0.5-1.4) mg/dL Estim Creat Clear Calc 70.5 Estimated GFR 56 Random Glucose 128 H (60-115) mg/dL Lactic Acid 1.2 (0.5-2.0) mmol/L Calcium 9.4 (8.4-10.2) mg/dL Magnesium 1.9 (1.6-2.6) mg/dL Total Bilirubin 0.8 (0.0-1.0) mg/dL AST 22 (5-31) U/L ALT 19 (0-31) U/L Alkaline Phosphatase 67 (39-117) U/L Troponin I High Sens < 2.7 (<3.5-17.0) ng/L Total Protein 6.9 (6.5-8.0) g/dL Albumin 4.1 (3.5-5.0) g/dL Lipase 15 (8-78) U/L Beta HCG, Quant 6 mIU/mL Urine Color Urine Appearance Urine pH (5.0-9.0) Ur Specific Doole (1.005-1.025) Urine Protein (Neg-Trace) mg/dL Urine Glucose (UA) (Negative) mg/dL Urine Ketones (Negative) mg/dL Urine Blood (Negative) Urine Nitrite (Negative) Ur Leukocyte Esterase (Negative) Urine RBC (0-2) /HPF Urine WBC (0-5) /HPF Ur Squamous Epith Cells (0-2) /HPF Urine Bacteria (None Seen) Hyaline Casts (0-2) /LPF Influenza Type A (PCR) NEGATIVE (Negative) Influenza Type B (PCR) NEGATIVE (Negative) RSV RNA Qual (PCR) NEGATIVE (Negative) SARS-CoV-2 RNA (RT-PCR) NEGATIVE (Negative) S. pyogenes GrpA MALCOM Negative (Negative) 09/25/24 Range/Units 12:16 WBC (4.8-10.8) X10*3/uL RBC (4.20-5.50) X10*6/uL Hgb (12.0-16.0) g/dl Hct (37.0-47.0) % MCV (80.0-98.0) fL MCH (27.0-33.0) pg MCHC (31.0-35.0) g/dl RDW (11.0-16.0) % Plt Count (160-400) X10*3/uL MPV (9.4-12.3) fL Immature Gran % (Auto) (0.0-0.4) % Neut % (Auto) (45-73) % Lymph % (Auto) (20-40) % [place]duffie % (Auto) (2-11) % Eos % (Auto) (0-4) % Baso % (Auto) (0-2) % Lymph # (Auto) (1.2-4.9) X10*3/uL [place]ff[place] # (Auto) (0.1-1.2) X10*3/uL Eos # (Auto) (0.0-0.4) X10*3/uL Baso # (Auto) (0.0-0.2) X10*3/uL Abs Immat Gran (auto) (0.00-0.03) X10*3/uL Absolute Neuts (auto) (2.0-8.3) x10*3/uL Absolute Nucleated RBC (0.0-0.012) X10*3/uL Nucleated RBC % (auto) (0.0-0.2) /100WBC Sodium (135-145) mmol/L Potassium (3.3-5.1) mmol/L Chloride (96-108) mmol/L Carbon Dioxide (22-29) mmol/L Anion Gap (12-20) BUN (9-16) mg/dL Creatinine (0.5-1.4) mg/dL Estim Creat Clear Calc Estimated GFR Random Glucose (60-115) mg/dL Lactic Acid (0.5-2.0) mmol/L Calcium (8.4-10.2) mg/dL Magnesium (1.6-2.6) mg/dL Total Bilirubin (0.0-1.0) mg/dL AST (5-31) U/L ALT (0-31) U/L Alkaline Phosphatase (39-117) U/L Troponin I High Sens (<3.5-17.0) ng/L Total Protein (6.5-8.0) g/dL Albumin (3.5-5.0) g/dL Lipase (8-78) U/L Beta HCG, Quant mIU/mL Urine Color Yellow Urine Appearance Clear Urine pH 6.5 (5.0-9.0) Ur Specific [place] 1.010 (1.005-1.025) Urine Protein Negative (Neg-Trace) mg/dL Urine Glucose (UA) Negative (Negative) mg/dL Urine Ketones Negative (Negative) mg/dL Urine Blood Negative (Negative) Urine Nitrite Negative (Negative) Ur Leukocyte Esterase Trace H (Negative) Urine RBC 0-2 (0-2) /HPF Urine WBC 0-5 (0-5) /HPF Ur Squamous Epith Cells 0-2 (0-2) /HPF Urine Bacteria None Seen (None Seen) Hyaline Casts 0-2 (0-2) /LPF Influenza Type A (PCR) (Negative) Influenza Type B (PCR) (Negative) RSV RNA Qual (PCR) (Negative) SARS-CoV-2 RNA (RT-PCR) (Negative) S. pyogenes GrpA MALCOM (Negative) Independent Interpretation I performed an independent interpretation of an: EKG Interpretation: NSR at a ventricular rate of 85bpm, no ST elevation or depression. No QTC prolongation. Radiology Impression Discussion of test interpretation with radiology: I have reviewed the radiologist's reading. Radiologist Impression: [place] [id number] XRay Report Signed Patient: Viviane Valle MR#: [id number] : 1975 Acct:[id number] Age/Sex: 48 / F ADM Date: 09/25/24 Loc: .ED Attending Dr: Ordering Physician: Desi Gonzalez Date of Service: 09/25/24 Procedure(s): XR chest 2V Accession Number(s): [id number] cc: PAZ WEBSTER MD; Desi Gonzalez~ CLINICAL HISTORY: cough, fever 2 view chest x-ray. Comparison: CR/SR - XR CHEST 1V - 03/18/2023 04:14 PM EDT CR - CHEST 2 VIEWS - 01/25/2018 03:17 PM EDT Findings: Normal lung volumes. Lungs are clear. No pneumothorax or pleural effusion. Heart size normal. No passive venous congestion. No midline shift or tracheal deviation. No acute fracture. Impression: 1. No acute cardiopulmonary disease. This document has been electronically signed by: Chetan Land MD on 09/25/2024 09:59:06 Dictated By: Chetan Land MD Discharge Plan Discharge Clinical Impression: Viral URI Patient Disposition: Home, Self-Care Instructions: Upper Respiratory Infection (ED) Additional Instructions: You were seen in the emergency department. Your workup today was reassuring. You tested negative for COVID, flu, RSV. Your urine does not appear to be infected, we will call you if we need to start you on antibiotic. Alternate between ibuprofen and Tylenol as needed for pain and fevers. Drink plenty of fluids get plenty of rest. You likely have a virus that is causing you to have the symptoms. If any new or worsening symptoms occur including but not limited to worsening pain, fevers not responding to Tylenol or Motrin, please seek emergent care. Prescriptions: No Action omeprazole 40 mg capsule,delayed release(DR/EC) 40 mg PO DAILY Qty: 14 0RF acetaminophen [Tylenol] 325 mg tablet 650 mg PO Q6H PRN (Reason: fever or pain) Qty: 30 0RF cyclobenzaprine 5 mg tablet 5 mg PO TID PRN (Reason: muscle spasm) Qty: 14 0RF hydrochlorothiazide 12.5 mg capsule 12.5 mg PO DAILY celecoxib 200 mg capsule 200 mg PO DAILY zolpidem 10 mg tablet 10 mg PO BEDTIME PRN ergocalciferol (vitamin D2) 1,250 mcg (50,000 unit) capsule 1,250 mcg PO QWEEK quetiapine 400 mg tablet 400 mg PO BEDTIME lorazepam 1 mg tablet 1 mg PO BID cetirizine 10 mg tablet 10 mg PO DAILY Referrals: Paz Webster MD [Primary Care Provider] - Interventions: ED Discharge Assessment Last Done: 09/25/24 13:12 Discharge Date/Time: 09/25/24 13:13 Print Language: Sami
--- NOTE | 2024-09-25 09:07 | ECG_ITS ---
Test Reason : tachycardia Blood Pressure : / mmHG Vent. Rate : 085 BPM Atrial Rate : 085 BPM P-R Int : 148 ms QRS Dur : 082 ms QT Int : 372 ms P-R-T Axes : 040 015 033 degrees QTc Int : 442 ms Normal sinus rhythm Normal ECG When compared with ECG of 21-MAR-2024 11:31, No significant change was found Referred By: Desi Gonzalez Electronically Signed By:
[2024-09-25 09:19] VITALS: BP 124/66; PULSE 88; RESP 20; O2SAT 98
[2024-09-25] MEDS: Acetaminophen 325 MG TABLET 975 MG PO (09:23)
[2024-09-25] MEDS: ondansetron HCL 4 MG/2 ML VIAL IVPUSH (09:24)
[2024-09-25] MEDS: 0.9 % Sodium Chloride 1,000 ML 999 ML IV (09:24)
[2024-09-25 09:29] LABS: MANUAL DIFF FLAG NO
[2024-09-25 09:55] LABS: Basophils Percent Auto 0.4 % (0-2); Eosinophils Absolute Auto 0.2 X10*3/uL (0.0-0.4); Eosinophils Percent Auto 1.4 % (0-4); Hematocrit 38.6 % (37.0-47.0); Hemoglobin 13.3 g/dl (12.0-16.0); Imm Gran Abs Auto 0.04 X10*3/uL (0.00-0.03); Imm Gran Pct Auto 0.4 % (0.0-0.4); Lymphocytes Absolute Auto 0.8 X10*3/uL (1.2-4.9); Lymphocytes Percent Auto 7.7 % (20-40); Mean Corpuscular HGB Conc 34.5 g/dl (31.0-35.0); Mean Corpuscular Hemoglobin 31.8 pg (27.0-33.0); Mean Corpuscular Volume 92.3 fL (80.0-98.0); Mean Platelet Volume 10.7 fL (9.4-12.3); Monocytes Absolute Auto 0.6 X10*3/uL (0.1-1.2); Monocytes Percent Auto 5.1 % (2-11); Neutrophils Absolute Auto 9.2 x10*3/uL (2.0-8.3); Platelet Count 246 X10*3/uL (160-400); Red Blood Count 4.18 X10*6/uL (4.20-5.50); Red Cell Distribution Width 13.2 % (11.0-16.0); White Blood Count 10.8 X10*3/uL (4.8-10.8)
[2024-09-25 10:04] LABS: Lactic Acid 1.2 mmol/L (0.5-2.0)
[2024-09-25 10:10] LABS: Alanine Aminotransferase 19 U/L (0-31); Albumin Level 4.1 g/dL (3.5-5.0); Alkaline Phosphatase 67 U/L (39-117); Anion Gap 12 (12-20); Aspartate Amino Transferase 22 U/L (5-31); Bilirubin Total 0.8 mg/dL (0.0-1.0); Blood Urea Nitrogen 10 mg/dL (9-16); Calcium 9.4 mg/dL (8.4-10.2); Carbon Dioxide 25 mmol/L (22-29); Chloride 107 mmol/L (96-108); Creatinine Clr Calc Pharmacy 70.5; Estimated Glomerular Filt Rate 56; Glucose Random 128 mg/dL (60-115); Lipase 15 U/L (8-78); Magnesium 1.9 mg/dL (1.6-2.6); Potassium 3.8 mmol/L (3.3-5.1); Sodium 140 mmol/L (135-145); Total Protein 6.9 g/dL (6.5-8.0)
[2024-09-25 10:11] LABS: HCG Quantitative 6 mIU/mL; Troponin-I High Sensitivity < 2.7 ng/L (<3.5-17.0)
[2024-09-25 10:23] LABS: Influenza A PCR NEGATIVE (Negative); Influenza B PCR NEGATIVE (Negative); Resp Syncy Virus RNA Qual PCR NEGATIVE (Negative); SARS COV2 PCR INHOUSE NEGATIVE (Negative)
[2024-09-25 11:08] VITALS: PULSE 80; RESP 18; TEMP 37.2
[2024-09-25 11:17] VITALS: RESP 18
[2024-09-25] MEDS: Morphine Sulfate 4 MG/ML CARTRIDGE IVPUSH (11:17)
[2024-09-25 11:40] LABS: IDNOW Serial# 08D9AD1C; Strep A Nucleic Acid Negative (Negative)
[2024-09-25 12:37] LABS: Appearance Urine Clear; Color Urine Yellow; Glucose Urine UA Negative (Negative); Leukocyte Esterase Urine Trace (Negative); Nitrite Urine Negative (Negative); PH 6.5 (5.0-9.0); UMIC TRIGGER UACC YES; Urine Blood Negative (Negative); Urine Ketones Negative (Negative); Urine Protein Negative (Neg-Trace)
[2024-09-25 12:39] LABS: Bacteria Urine None Seen (None Seen); Hyaline Casts Urine 0-2 /LPF (0-2); RBC Urine 0-2 /HPF (0-2); Squamous Epithelial Cell Urine 0-2 /HPF (0-2); WBC Urine 0-5 /HPF (0-5)
[2024-09-25 13:12] VITALS: BP 122/80; PULSE 80; RESP 18; TEMP 36.6; O2SAT 99
== END 2024-09-25 13:13 | disposition home or self-care (01) ==
PROVIDERS: Physician Assistant Medical; Emergency Provider Emergency Medicine; PCP Internal Medicine
DX: J06.9 Acute upper respiratory infection, unspecified (principal); R50.9 Fever, unspecified; R51.9 Headache, unspecified; R11.2 Nausea with vomiting, unspecified; M79.10 Myalgia, unspecified site; R00.0 Tachycardia, unspecified; Z03.818 Encounter for observation for suspected exposure to other biological agents ruled out; Z79.899 Other long term (current) drug therapy
CPT/HCPCS: 0241U; 36415; 71046; 80053; 81001; 83605; 83690; 83735; 84484; 84702; 85025; 87040; 87651; 93005; 96361; 96374; 96375; 99284; 99285; J2270; J2405

== ENCOUNTER → 2024-09-25 09:07 | Outpatient (BNV) | payer MEDICAID, SELFPAY | PROVIDERS: Emergency Provider Emergency Medicine; PCP Internal Medicine; Visit Provider Radiology Diagnostic Radiology | DX: R05.9 Cough, unspecified (principal) | CPT/HCPCS: 71046 ==